=== PATIENT | female | born 1970 | race Hispanic/Latino ===

== ENCOUNTER 2018-02-08 10:38 | Outpatient (CLI) | payer BC | END 2018-02-08 10:39 | disposition home or self-care (01) | LOC: DTY/OP 10:38 | PROVIDERS: ATTEND Surgery | DX: I10 Essential (primary) hypertension (principal); G47.30 Sleep apnea, unspecified | CPT/HCPCS: 97802 ==

== ENCOUNTER 2018-03-08 15:18 | Outpatient (CLI) | payer BC | END 2018-03-08 15:19 | disposition home or self-care (01) | LOC: DTY/OP 15:18 | PROVIDERS: ATTEND Surgery | DX: Z48.812 Encounter for surgical aftercare following surgery on the circulatory system (principal); G47.30 Sleep apnea, unspecified; I10 Essential (primary) hypertension; Z98.84 Bariatric surgery status | CPT/HCPCS: 97802 ==

== ENCOUNTER 2018-04-09 14:34 | Outpatient (CLI) | payer BC | END 2018-04-09 14:35 | disposition home or self-care (01) | LOC: DTY/OP 14:34 | PROVIDERS: ATTEND Surgery | DX: G47.30 Sleep apnea, unspecified (principal); I10 Essential (primary) hypertension | CPT/HCPCS: 97802 ==

== ENCOUNTER 2018-08-07 09:48 | Outpatient (CLI) | payer BC ==
--- NOTE | 2018-08-07 12:06 | CT ---
CT CERVICAL SPINE WITHOUT CONTRAST: INDICATIONS: Radicular pain. Neck pain radiating into the left upper extremity. TECHNIQUE: Multiple axial tomograms obtained through the cervical spine with multiplanar reconstruction. FINDINGS: The cervical vertebrae maintain normal height and alignment. There are mild degenerative disk and sp ondylitic changes seen at C5-C6, C6-C7, and C7-T1. Mild loss of disk space at these levels. At C3-C4, minimal disk bulge mildly effaces the anterior subarachnoid space. The foramina are patent . At C4-C5, evidence of mild disk bulge. No central canal or foraminal stenosis. At C5-C6, there is mild disk bulge and spondylosis abutting the anterior cord. Mild left foraminal n arrowing from uncinate hypertrophy. At C6-C7, disk bulge and spondylosis abut the anterior cord. Mild left foraminal narrowing through t his facet and uncinate hypertrophy. IMPRESSION: Degenerative disk and spondylitic change at C5-C6 and C6-C7, as described above. POS: [facility]
--- NOTE | 2018-08-07 13:06 | CT ---
CT OF THE LUMBAR SPINE WITHOUT CONTRAST: INDICATION: History of back pain since 2013 after trauma to the back. The patient has a dorsal column stimulator in place. The patient is having bilateral leg pain with tingling and numbing sensation. COMPARISON: Prior CT lumbar myelogram dated 10/24/[address] of the lumbar spine without contrast dated 05/18. FINDINGS: There is mild degenerative osteoarthrosis involving the SI joints bilaterally. At L5-S1, there is a mild broad-based disk-osteophyte complex with facet hypertrophy and loss of disk space height inducing moderate bilateral osseous neural foraminal narrowing which appears stable to the comparison exams. At L4-5, there is a broad-based disk-osteophyte complex and facet hypertrophy inducing mild central c anal narrowing and moderate bilateral neural foraminal narrowing which is stable. At L3-4, there is vacuum disk phenomenon within the L3-4 level. There is a right paracentral protrus ion containing gas that is stable to the prior CT examination dated 05/18/2016. There is some mild arnoldo rowing of the right lateral recess that appears stable due to the procedure. Facet hypertrophy and d isk-osteophyte complex induces mild bilateral neural foraminal narrowing which is stable. At L2-3, there is a mild broad-based bulge without appreciable osseous, central canal, or neural fora joslyn narrowing. At L1-L2, there is no appreciable osseous central canal or neural foraminal narrowing. At T12-L1, the posterior dorsal column stimulator leads enter into the epidural space within the inte rlaminar space at T11-12 and extend beyond the field of view. No appreciable central canal or neural foraminal narrowing is seen. IMPRESSION: 1. Stable multilevel spondylosis of the lumbar spine. 2. No acute fracture or subluxation is demonstrated. POS: [facility]
== END 2018-08-07 09:49 | disposition home or self-care (01) ==
LOC: BICCT 09:48
PROVIDERS: ATTEND Specialist
DX: M48.062 Spinal stenosis, lumbar region with neurogenic claudication (principal); M47.896 Other spondylosis, lumbar region; M50.122 Cervical disc disorder at C5-C6 level with radiculopathy; M46.92 Unspecified inflammatory spondylopathy, cervical region
CPT/HCPCS: 72125; 72131

== ENCOUNTER 2018-08-21 09:00 | Inpatient (IN) | payer BC ==
[2018-08-26] MEDS ORDERED: Famotidine/PF 20 mg/2ml Vial ONE (11:14)
[2018-08-26] MEDS ORDERED: Ondansetron PF 4 MG/2 ML Vial ONE ×2 (11:15→15:11)
[2018-08-26] MEDS ORDERED: Bupivacaine/Epinephrine 0.25% 30 ML VIAL ONE (11:18)
[2018-08-26] MEDS ORDERED: Midazolam HCl 2 mg/2 ml Vial ONE (11:27)
[2018-08-26] MEDS ORDERED: Ketamine 50 MG/ML (10ML VIAL) ONE (11:27)
[2018-08-26] MEDS ORDERED: Fentanyl 100 MCG/2 ML VIAL ONE ×2 (11:28→14:18)
[2018-08-26] MEDS ORDERED: Heparin 5,000 UNITS/ML VIAL ONE (11:28)
[2018-08-26] MEDS ORDERED: Albuterol Sulfate 1.25 MG/3 ML NEB ONE (13:41)
[2018-08-26] MEDS ORDERED: Promethazine HCl 25 MG/ML VIAL IM PRN (14:02)
[2018-08-26] MEDS ORDERED: diphenhydrAMINE 50 MG/ML VIAL IM PRN (14:02)
[2018-08-26] MEDS ORDERED: HYDROmorphone 10 mg/100 ml CADD IVPB PRN (14:02)
[2018-08-26] MEDS ORDERED: Zolpidem Tartrate 5 MG TAB PO PRN (14:02)
[2018-08-26] MEDS ORDERED: diphenhydrAMINE 25 MG CAP PO PRN (14:02)
[2018-08-26] MEDS ORDERED: Naloxone HCl 0.4 mg/ml Vial IV PRN (14:02)
[2018-08-26] MEDS ORDERED: Ondansetron PF 4 MG/2 ML Vial IVP PRN (14:02)
[2018-08-26] MEDS ORDERED: diphenhydrAMINE 50 MG/ML VIAL IVP PRN ×2 (14:02→15:09)
[2018-08-26] MEDS ORDERED: D5 1/2 NS w/20 mEq KCL 1,000 ML ONE (14:06)
[2018-08-26] MEDS ORDERED: Communication Order-Pharmacy FS SCH (14:15)
[2018-08-26] MEDS ORDERED: Hydrocodone-Acetamin 15 ML UDCUP PO PRN (15:09)
[2018-08-26] MEDS ORDERED: hydrALAZINE 20 MG/ML VIAL SLOW IVP PRN (15:09)
[2018-08-26] MEDS ORDERED: Dextrose 50% Abboject 50 ML SYRINGE SLOW IVP PRN (15:09)
[2018-08-26] MEDS ORDERED: Dextrose 5% in Water 1,000 ML IV PRN (15:09)
[2018-08-26] MEDS ORDERED: Labetalol HCl 100 MG/20 ML VIAL ONE (15:11)
[2018-08-26] MEDS ORDERED: Lidocaine 1% PF 5 ML VIAL ONE (15:11)
[2018-08-26] MEDS ORDERED: PROVENTIL INHALER 6.7 G (200 INHALATIONS) ONE (15:11)
[2018-08-26] MEDS ORDERED: Esmolol 100 MG/10 ML VIAL ONE (15:11)
[2018-08-26] MEDS ORDERED: PROPOFOL 200 MG/20 ML VIAL ONE (15:11)
[2018-08-26] MEDS ORDERED: Glycopyrrolate 0.2 MG/ML 5 ML SYRINGE ONE (15:11)
[2018-08-26] MEDS ORDERED: Dexamethasone 20 MG/5 ML VIAL ONE (15:11)
[2018-08-26] MEDS ORDERED: Succinylcholine Chloride 20 MG/ML 10 ml SYRINGE FS ONE (15:11)
[2018-08-26] MEDS: D5 1/2 NS w/20 mEq KCL 1,000 ML IV SCH ×2 (15:39→23:15)
[2018-08-26] MEDS: Ondansetron PF 4 MG/2 ML Vial IVP PRN (17:45)
--- NOTE | 2018-08-26 19:22 | OP ---
DATE OF PROCEDURE: 08/26/2018 PREOPERATIVE DIAGNOSES: 1. Morbid obesity with a body mass index of 40. 2. Obstructive sleep apnea. 3. History of erosive esophagitis. POSTOPERATIVE DIAGNOSES: 1. Morbid obesity with a body mass index of 40. 2. Obstructive sleep apnea. 3. History of erosive esophagitis. PROCEDURES: 1. Laparoscopic Navin-en-Y gastric bypass, 100 cm bypass length. 2. EGD. SURGEON: Alejandro Boyer MD ANESTHESIA: General. ESTIMATED BLOOD LOSS: 50 mL. COMPLICATIONS: None. SPECIMEN: None. FINDINGS: Normal postoperative EGD. PROCEDURE IN DETAIL: The patient was taken to the operating room and placed supine on the table. Af ter general anesthetic was obtained, the arms and legs were double strapped to bariatric table. OG t ube was used to decompress the stomach. The abdomen was prepped and draped in a sterile fashion. Le ft subcostal 5-mm Optiview trocar was placed in the usual fashion and high-flow pneumoperitoneum was obtained. Left and right lower abdominal 12-mm ports and right subcostal 12-mm port were placed unde r direct visualization. The 5-mm subcostal port switched out to a 12-mm port. The greater omentum h ad split right at the mid transverse colon. The transverse colon was lifted up for the ligament of T eugenia. A distance of 30 cm was marched distally and a laparoscopic stapler was fired transversely ac ross the intestine. The mesentery defect is opened slightly more and a Navin limb was formed by meghannin g the laparoscopic LigaSure up against the mesenteric surface of the distal small bowel staple line f or 10 cm. A distance of 100 cm is then marched distally. At this location, an enterotomy was made o n the antimesenteric surface of the small bowel. An enterotomy was made on the above-mentioned proxi mal staple line as well. A [id number] staple lines formed using a reload of the 60 stapler. The c ommon enterotomy was closed transversely using two loads of the 60 stapler. Care was taken to avoid stenosis of the jejunojejunostomy, did not appear to be stenosed. The mesenteric defect was closed u sing 2 Vicryl sutures. The Navin limb was able to be brought up on top of the stomach under no tensio n. Care was taken to make sure this mesentery was not twisted. Along the lesser curve of the stomac h, approximately 3 cm down, a small tunnel path is performed behind the GE junction. A laparoscopic stapler was fired transversely across the stomach at this location to start the upper pouch. A dista l gastrotomy was made. The anvil for the 25 EEA was brought into the gastrotomy and the band passer used to pass it out above the above-mentioned staple line. This would be the location for the gastro jejunostomy. The gastrotomy was closed using 2 fires of the stapler. Multiple loads of the stapler were then used to form the stomach pouch and the stomach was completely at the angle of His . The sharp pin was brought out on the anvil from above. The base for the EEA was brought into the left subcostal incision, placed through the end of the Navin limb and out its sharp pin brought out on the antimesenteric surface of the small intestine proximally. This was connected to the anvil from above. The stapler was fired down and fired. There were 2 good rings of tissue obtained and the sta pler was removed. Two Vicryl sutures were used to oversew the staple line. The distal blue limb was stapled off at the location of the gastrojejunostomy and removed from the left subcostal incision. EGD scope was passed via the esophagus into the stomach pouch and into the Navin limb without difficul ty. There was no stenosis. There was no air leakage along the staple line. There was no internal b leeding or evidence of defects or stenosis. EGD scope was used to decompress the stomach. It was pu lled and removed. All 12-mm port sites were closed using GraNee needle 0 Vicryl ties. Nathansen ret ractor was removed under direct visualization without bleeding. Pneumoperitoneum was let down. All incisions were irrigated. Local anesthetic was applied. All wounds were closed using 4-0 Monocryl a nd Dermabond. The patient was en route to recovery in stable condition. All instrument counts, need le counts, lap counts are correct.
[2018-08-26] MEDS: Enoxaparin Sodium 40 MG/0.4 ML SYRINGE SC SCH (21:38)
[2018-08-26] MEDS: Promethazine HCl 25 MG/ML VIAL IM PRN (21:41)
[2018-08-27] MEDS: Ondansetron PF 4 MG/2 ML Vial IVP PRN ×2 (02:01→08:26)
[2018-08-27 05:21] LABS: #Lymphocytes 1.4 thou/uL (1.20-3.40); #Monocytes 1.4 thou/uL (0.11-0.59); #Neutrophils 14.7 thou/uL (1.40-6.50); %Basophils 0.2 % (0.0-1.0); %Eosinophils 0.1 % (0.0-10.0); %Lymphocytes 7.8 % (21.0-51.0); %Monocytes 8.2 % (0.0-10.0); %Neutrophils 83.7 % (42.0-75.0); Hemoglobin 14.9 g/dL (12.0-16.0); Mean Corpuscular HGB CONC 32.5 g/dL (32.0-36.0); Mean Corpuscular Hemoglobin 29.5 pg (27.0-31.0); Mean Corpuscular Volume 90.8 fL (78.0-98.0); Platelet Count 358 thou/uL (130-400); RBC Distribution Width 11.9 % (11.5-14.5); Red Blood Cell (RBC) Count 5.05 mill/uL (4.20-5.40); White Blood Cell (WBC) Count 17.5 thou/uL (4.8-10.8)
[2018-08-27] MEDS: D5 1/2 NS w/20 mEq KCL 1,000 ML IV SCH (05:22)
[2018-08-27] MEDS: Promethazine HCl 25 MG/ML VIAL IM PRN ×6 (05:25→22:25)
[2018-08-27 05:34] LABS: Anion Gap 11 mmol/L (10-20); BUN (Urea Nitrogen) 5 mg/dL (7.0-18.7); Calc. Creatinine Clearance 219 mL/min (70-130); Carbon Dioxide 20 mmol/L (22-29); Chloride 103 mmol/L (98-107); Estimated GFR-MDRD Greater than 90; Glucose 152 mg/dL (70-105); Potassium 3.8 mmol/L (3.5-5.1); Sodium 130 mmol/L (136-145)
[2018-08-27] MEDS: Sodium Chloride 0.9% 1,000 ML IV SCH ×3 (08:25→21:40)
[2018-08-27] MEDS: Pantoprazole 40 MG VIAL IVP SCH (08:26)
--- NOTE | 2018-08-27 08:50 | EKG ---
Test Reason : PREOP Blood Pressure : / mmHG Vent. Rate : 072 BPM Atrial Rate : 072 BPM P-R Int : 148 ms QRS Dur : 094 ms QT Int : 386 ms P-R-T Axes : 037 -09 032 degrees QTc Int : 422 ms Normal sinus rhythm Normal ECG Confirmed by DR. Flor ABBASI ([id number]) on 08/27/2018 8:49:42 AM Referred By: CARLITA Confirmed By:DR. Flor ABBASI
[2018-08-27] MEDS: Acetaminophen 1,000 MG in Premix Bag 1 BAG IVPB PRN ×2 (13:33→21:39)
[2018-08-27] MEDS: fentaNYL Citrate/PF 2,000 MCG in Sodium Chloride 0.9% 60 ML IV PRN (14:01)
[2018-08-27] MEDS ORDERED: METOCLOPRAMIDE HCL IVP SCH (14:45)
[2018-08-27] MEDS ORDERED: ONDANSETRON IVP SCH (14:45)
[2018-08-27] MEDS ORDERED: SODIUM CHLORIDE 0.9% IVP SCH ×2 (14:45)
[2018-08-27] MEDS: Enoxaparin Sodium 40 MG/0.4 ML SYRINGE SC SCH (20:19)
--- NOTE | 2018-08-27 20:42 | PDOC.EVN ---
Event Note - Event Note Event Note: Patient has had multiple episodes of vomitting today. Severe nausea. Added reglan, changed cork slabs sawyer to fentanyl. Vital signs stable. Patient seen at bedside and reassured. Likely swelling at anastamosis. EGD immediately post op showed no obstruction. Plan swallow study tomorrow. Supportive care.
[2018-08-27] MEDS ORDERED: Sodium Chloride 0.9% 1,000 ML IV SCH (23:15)
[2018-08-27 23:27] LABS: Hemoglobin 13.8 g/dL (12.0-16.0)
[2018-08-28] MEDS ORDERED: Ondansetron HCl/PF 8 MG in Sodium Chloride 0.9% 50 ML IVPB SCH (00:30)
[2018-08-28 04:24] LABS: #Eosinphils 0.1 thou/uL (0.0-0.7); #Lymphocytes 1.3 thou/uL (1.20-3.40); #Monocytes 0.9 thou/uL (0.11-0.59); #Neutrophils 17.2 thou/uL (1.40-6.50); %Basophils 0.1 % (0.0-1.0); %Eosinophils 0.3 % (0.0-10.0); %Lymphocytes 6.5 % (21.0-51.0); %Monocytes 4.8 % (0.0-10.0); %Neutrophils 88.2 % (42.0-75.0); Hemoglobin 12.6 g/dL (12.0-16.0); Mean Corpuscular Hemoglobin 30.3 pg (27.0-31.0); Mean Corpuscular Volume 91.9 fL (78.0-98.0); Mean Platelet Volume 7.2 fL (7.4-10.4); Platelet Count 375 thou/uL (130-400); RBC Distribution Width 11.9 % (11.5-14.5); Red Blood Cell (RBC) Count 4.15 mill/uL (4.20-5.40); White Blood Cell (WBC) Count 19.5 thou/uL (4.8-10.8)
[2018-08-28 05:21] LABS: Anion Gap 12 mmol/L (10-20); BUN (Urea Nitrogen) 18 mg/dL (7.0-18.7); Calc. Creatinine Clearance 198 mL/min (70-130); Calcium 8.4 mg/dL (7.8-10.44); Carbon Dioxide 15 mmol/L (22-29); Chloride 110 mmol/L (98-107); Estimated GFR-MDRD Greater than 90; Glucose 196 mg/dL (70-105); Potassium 3.9 mmol/L (3.5-5.1); Sodium 133 mmol/L (136-145)
[2018-08-28] MEDS: Ondansetron PF 4 MG/2 ML Vial IVP PRN (05:36)
--- NOTE | 2018-08-28 07:14 | PRG ---
DATE OF SERVICE: 08/28/2018 SUBJECTIVE: Ms. Kaplan is still very uncomfortable, burning in her low chest from vomiting. She had dry heaving and vomiting of small amounts of bloody material all night long. Her pulse has gradu ally become faster through the night. Her blood pressures have remained stable. She has been awake and alert. Her O2 sats have been fine. She is complaining of occasional cramping pain in the upper abdomen that is not described as severe. PHYSICAL EXAMINATION: VITAL SIGNS: Pulse 134, blood pressure is 144/97, respirations 17, temperature 98.7. She has voided a few times overnight. ABDOMEN: Soft. Incisions are healing well. She is minimally distended. LABORATORY DATA: White cell count is 19, hemoglobin 12, platelet count is 375. Sodium 133, potassiu m 3.9, creatinine 0.62, CO2 of 15. ASSESSMENT: Postoperative day #2, laparoscopic gastric bypass with persistent nausea postoperative t hat has now turned into vomiting, some bloody with persistent tachycardia. PLAN: I will take her back to the operating room this morning, diagnostic laparoscopy plus EGD. Ris ks, benefits, alternatives discussed. She gives consent. We will do this this morning.
[2018-08-28] MEDS ORDERED: Bupivacaine/Epinephrine 0.25% 30 ML VIAL ONE (07:54)
[2018-08-28] MEDS ORDERED: Fentanyl 100 MCG/2 ML VIAL ONE (07:56)
[2018-08-28] MEDS ORDERED: Fentanyl 250 MCG/5 ML VIAL ONE (08:37)
[2018-08-28] MEDS ORDERED: CEFAZOLIN 2 GM/50 ML BAG ONE (08:42)
[2018-08-28] MEDS ORDERED: HYDROmorphone 2 MG/ML VIAL ONE (10:40)
[2018-08-28] MEDS ORDERED: PHENYLEPHRINE-NS 100 MCG/ML 10 ML SYRINGE ONE ×2 (10:43→17:19)
[2018-08-28] MEDS ORDERED: Sodium Chloride 0.9% 20 ML ONE (10:50)
[2018-08-28] MEDS ORDERED: Esmolol 100 MG/10 ML VIAL ONE ×2 (12:04→17:19)
[2018-08-28] MEDS ORDERED: Metoprolol Tartrate 5 MG/5 ML VIAL ONE (12:42)
[2018-08-28] MEDS ORDERED: Metoclopramide HCl 10 MG/2 ML VIAL ONE (12:42)
[2018-08-28] MEDS ORDERED: Promethazine HCl 25 MG/ML VIAL IM PRN (13:19)
[2018-08-28] MEDS ORDERED: Promethazine HCl 25 MG/ML VIAL SLOW IVP PRN (13:19)
[2018-08-28] MEDS ORDERED: Ondansetron HCl/PF 4 MG/2 ML Vial IVP PRN (13:19)
--- NOTE | 2018-08-28 15:18 | RAD ---
PORTABLE CHEST: Indications: Assess line placement. Comparison: 08-21-18 FINDINGS: Central line via the right jugular appears adequate position with the tip overlying the SVC. There is new patchy atelectasis and/or infiltrate in the left lung base when compared to prior study. There i s also linear density in the right base, probably atelectasis. IMPRESSION: New bibasilar opacities. Follow up recommended. POS: [facility]
[2018-08-28] MEDS ORDERED: Fluconazole In NaCl,Iso-Osm 200 MG in Premix Bag 1 BAG IVPB SCH (15:39)
[2018-08-28] MEDS ORDERED: Dextrose 50% Abboject 50 ML SYRINGE SLOW IVP PRN (15:39)
[2018-08-28] MEDS ORDERED: Dextrose 5% in Water 1,000 ML IV PRN (15:39)
[2018-08-28] MEDS ORDERED: Insulin Regular 300 UNITS/3 ML VIAL SC PRN (15:39)
[2018-08-28] MEDS ORDERED: Fluconazole In NaCl,Iso-Osm 200 MG in Admixture Fee 1 EACH IVPB SCH (16:00)
[2018-08-28 16:51] LABS: Hemoglobin 13.1 g/dL (12.0-16.0)
[2018-08-28] MEDS: Piperacillin/Tazobactam 3.375 GM in Sodium Chloride 0.9% 100 ML IVPB SCH ×2 (17:11→22:49)
[2018-08-28] MEDS: Pantoprazole 40 MG VIAL IVP SCH (17:11)
[2018-08-28] MEDS: Sodium Chloride 0.9% 1,000 ML IV SCH ×2 (17:11→20:19)
[2018-08-28] MEDS: D5 1/2 NS w/20 mEq KCL 1,000 ML IV SCH (17:14)
[2018-08-28] MEDS ORDERED: Sodium Chloride 0.9% 1,000 ML IV SCH ×2 (17:15→19:30)
[2018-08-28] MEDS ORDERED: PROPOFOL 200 MG/20 ML VIAL ONE (17:19)
[2018-08-28] MEDS ORDERED: Ondansetron PF 4 MG/2 ML Vial ONE ×2 (17:19)
[2018-08-28] MEDS ORDERED: Succinylcholine Chloride 20 MG/ML 10 ml SYRINGE FS ONE (17:19)
[2018-08-28] MEDS ORDERED: Dexamethasone 20 MG/5 ML VIAL ONE (17:19)
[2018-08-28] MEDS ORDERED: Lidocaine 1% PF 5 ML VIAL ONE (17:19)
[2018-08-28] MEDS ORDERED: Glycopyrrolate 0.2 MG/ML 5 ML SYRINGE ONE (17:19)
--- NOTE | 2018-08-28 19:13 | CON ---
DATE OF CONSULTATION: 08/28/2018 REASON FOR CONSULTATION: IMCU placement. HISTORY OF PRESENT ILLNESS: Binta Kaplan is a 47-year-old female who underwent a Navin-en-Y gastri c bypass surgery on 08/26/2018. The patient was transferred to the IMCU last night. According to e event note, she has been having multiple episodes of vomiting throughout the day. She had become t achycardic. She was taken down for an exploratory lap today, she was found to have peritonitis. She had a G-tube placed. I saw her in the recovery room after surgery. She was awake and seems to be d oing reasonably well except for tachycardia, heart rate of about 150. PAST MEDICAL HISTORY: 1. Hypertension. 2. Migraine headaches. 3. Carpal tunnel syndrome. 4. Chronic back pain. 5. Morbid obesity. PAST SURGICAL HISTORY: 1. Hysterectomy. 2. Cholecystectomy. 3. Knee arthroscopy. 4. Foot surgery. 5. Dorsal cord stimulator. 6. Septoplasty. FAMILY MEDICAL HISTORY: Remarkable for diabetes, hypertension, and stroke and throat cancer. MEDICATIONS: Prior to admission, ProAir, Symbicort. SOCIAL HISTORY: Nonsmoker. Very occasionally consumes alcohol. ALLERGIES: None. REVIEW OF SYSTEMS: Twelve-point review of systems is otherwise negative. PHYSICAL EXAMINATION: VITAL SIGNS: Heart rate 150, blood pressure 123/82, O2 sat 96% on 2 liters, respiratory rate 15. GENERAL: She is awake. She is in no distress. HEENT: Pupils react. Sclerae icteric. Oropharynx clear. NECK: She has a right IJ central line in place. LUNGS: Clear anteriorly without wheezing or rhonchi. CARDIOVASCULAR: S1, S2, tachycardic without audible murmur. ABDOMEN: Slightly distended, tenderness around the incisional site. G-tube noted. EXTREMITIES: No clubbing, cyanosis, or edema. LABORATORY DATA: White blood cell count 19.5, hematocrit 38.1, platelet count 375. Sodium 133, pota ssium 3.9, chloride 110, CO2 is 15, BUN 18, creatinine 0.6, glucose 196. IMAGING: Chest x-ray demonstrates some atelectatic changes in the left upper lobe and right middle l obe area. Otherwise, looks okay. ASSESSMENT: 1. Peritonitis. 2. Tachycardia, which is probably secondary to peritonitis. PLAN: The patient is receiving IV fluids. I will check an EKG to make sure she is not in atrial flu tter. Might possibly need antibiotics. I will discuss with Dr. Boyer.
[2018-08-28] MEDS: Enoxaparin Sodium 40 MG/0.4 ML SYRINGE SC SCH (20:18)
[2018-08-28] MEDS: PROVENTIL INHALER 6.7 G (200 INHALATIONS) INH PRN (22:53)
[2018-08-28 23:02] LABS: Hemoglobin 11.7 g/dL (12.0-16.0); Mean Corpuscular HGB CONC 32.8 g/dL (32.0-36.0); Mean Corpuscular Hemoglobin 30.6 pg (27.0-31.0); Mean Corpuscular Volume 93.3 fL (78.0-98.0); Mean Platelet Volume 7.4 fL (7.4-10.4); Platelet Count 315 thou/uL (130-400); RBC Distribution Width 12.2 % (11.5-14.5); Red Blood Cell (RBC) Count 3.82 mill/uL (4.20-5.40); White Blood Cell (WBC) Count 32.1 thou/uL (4.8-10.8)
[2018-08-28 23:18] LABS: Band 5 % (5-11); Hypochromia SLIGHT = 6-15 cells (100X) (0-5/hpf); Lymphocytes 2 % (21-51); MDiff Complete? YES; Monocytes 5 % (0-10); Neutrophil 88 % (42-75); PLT Morphology Comment Appears Adequate
--- NOTE | 2018-08-28 23:24 | OP ---
DATE OF SERVICE: 08/28/2018. PREOPERATIVE DIAGNOSES: Tachycardia, intractable nausea, vomiting, status post gastric bypass. POSTOPERATIVE DIAGNOSIS: 1. Dilated partially obstructed remnant stomach that is blood filled. 2. Iatrogenic injury to small bowel x3. 3. Ileus. PROCEDURE: Exploratory laparotomy, repair of small bowel injury x3, placement of G-tube in remnant s tomach for decompression. SURGEON: Alejandro Boyer M.D. ANESTHESIA: General. ESTIMATED BLOOD LOSS: 150 mL COMPLICATIONS: None. FINDINGS: There is diffuse dilation of the intestine and colon consistent with ileus. The remnant s tomach is significantly dilated to the point of almost perforation of its staple line. A G-tube is p laced with bloody bilious material in the remnant stomach. TECHNIQUE: The patient was taken to the operating room same table. After general anesthetic was obt ained, a Contreras was placed. The abdomen is prepped and draped in a sterile fashion. Laparoscopy is a ttempted; however, the small intestine is just too dilated to see. A midline incision was made. A B ookwalter retractor was placed. The small bowel was traced from the gastrojejunostomy distally to th e jejunojejunostomy. There were some acute adhesions in the area and in doing so where one of the ga strojejunostomy oversew suture as well as little hole on the small intestine just distal to the anastomosis. This was closed using interrupted Vicryl suture followed by 3-0 silk serosal sutures. It was tested and found to be without leak after that. The small bowel was run to the jejunojejunos kriss. There is no evidence of stenosis at the gastrojejunostomy anastomosis. There is no evidence o f stenosis at the jejunojejunostomy. There is no evidence of stenosis and the lumens are wide open f or the afferent limb going up to the stomach. Small bowel was then run distally and a few small ente rotomies were found from using the laparoscopic grasping device. These are closed using interrupted Vicryl suture and silk oversew sutures. Small bowel was then run all the way to the colon without fu rther evidence of injury. The abdomen is irrigated copiously using sterile solution. There was spil sergio of some small bowel contents with repair of these enterotomies. Along the greater curve, a loca tion for a G-tube was found and a pursestring of silk was placed. A gastrotomy was made and the Male cot catheter placed into the stomach. Pursestring was tied down. The stomach was pulled up to the p osterior abdominal wall and affixed to the posterior abdominal wall using silk sutures. Again, there was no evidence of leakage at the previous gastrojejunostomy anastomosis. [address] d in the left subdiaphragmatic area and along the remnant stomach staple line. These were sewn to th e skin using silk. All instrument counts, needle counts, lap counts were correct. There is no ongoi ng bleeding. Midline fascia closed with #1 PDS from the top and the bottom and tied in the middle. Subcutaneous tissues are irrigated copiously using sterile solution and the subcutaneous tissues were closed using 3-0 Vicryl. The skin was closed loosely using skin clips. Telfa rohit were placed. S terile dressings are placed. Dressings are placed around drain site and G-tube site. FINDINGS: The right neck is prepped and draped in a sterile fashion. The 22-gauge finder needle was used to cannulate the right internal jugular vein followed by a Seldinger needle. Wire was passed a nd under no tension, small iván was made to entrance site. The wire was used as a guide to dilate th e internal jugular vein. Triple lumen catheter was threaded to 16 cm, sewn to the neck using closed silk and connector. All ports flushed and draw blood without difficulty. Each is flushed with a woodrow ine solution. Sterile dressings are placed as well as the antimicrobial disk. The patient was en ro swetha to the IMCU in stable condition, extubated. All instrument counts, needle counts, lap counts wer e correct.
[2018-08-28 23:46] LABS: ALT (SGPT) 69 U/L (8-55); AST (SGOT) 62 U/L (5-34); Albumin 2.4 g/dL (3.5-5.0); Alkaline Phosphatase 56 U/L (40-150); Anion Gap 10 mmol/L (10-20); BUN (Urea Nitrogen) 29 mg/dL (7.0-18.7); Bilirubin, Total 0.5 mg/dL (0.2-1.2); Calc. Creatinine Clearance 87 mL/min (70-130); Calcium 7.2 mg/dL (7.8-10.44); Carbon Dioxide 17 mmol/L (22-29); Chloride 115 mmol/L (98-107); Estimated GFR-MDRD 40; Globulin 2.4 g/dL (2.4-3.5); Glucose 187 mg/dL (70-105); Magnesium 1.2 mg/dL (1.6-2.6); Phosphorus 1.6 mg/dL (2.3-4.7); Potassium 4.5 mmol/L (3.5-5.1); Protein, Total 4.8 g/dL (6.0-8.3); Sodium 137 mmol/L (136-145)
[2018-08-29] MEDS ORDERED: Albumin 25% 25 GM/100 ML BOT IVPB SCH (00:15)
[2018-08-29] MEDS: D5 1/2 NS w/20 mEq KCL 1,000 ML IV SCH ×3 (00:35→20:59)
[2018-08-29] MEDS ORDERED: Magnesium Sulfate 4 GM in Sodium Chloride 0.9% 250 ML 250 ML IVPB SCH (01:00)
[2018-08-29] MEDS: Piperacillin/Tazobactam 3.375 GM in Sodium Chloride 0.9% 100 ML IVPB SCH ×4 (05:58→21:00)
[2018-08-29 06:18] LABS: Anion Gap 11 mmol/L (10-20); BUN (Urea Nitrogen) 35 mg/dL (7.0-18.7); Calc. Creatinine Clearance 96 mL/min (70-130); Calcium 7.2 mg/dL (7.8-10.44); Carbon Dioxide 17 mmol/L (22-29); Chloride 116 mmol/L (98-107); Estimated GFR-MDRD 45; Glucose 182 mg/dL (70-105); Sodium 140 mmol/L (136-145)
[2018-08-29 06:29] LABS: Band 2 % (5-11); Hemoglobin 9.8 g/dL (12.0-16.0); Hypochromia SLIGHT = 6-15 cells (100X) (0-5/hpf); Lymphocytes 5 % (21-51); MDiff Complete? YES; Mean Corpuscular HGB CONC 31.7 g/dL (32.0-36.0); Mean Corpuscular Hemoglobin 29.7 pg (27.0-31.0); Mean Corpuscular Volume 93.7 fL (78.0-98.0); Mean Platelet Volume 7.5 fL (7.4-10.4); Monocytes 5 % (0-10); Neutrophil 88 % (42-75); PLT Morphology Comment Appears Adequate; Platelet Count 280 thou/uL (130-400); RBC Distribution Width 12.2 % (11.5-14.5); Red Blood Cell (RBC) Count 3.31 mill/uL (4.20-5.40); White Blood Cell (WBC) Count 23.5 thou/uL (4.8-10.8)
[2018-08-29] MEDS: Pantoprazole 40 MG VIAL IVP SCH (08:05)
[2018-08-29] MEDS ORDERED: Sodium Phosphate 60 MEQ/15 ML VIAL IVPB SCH (08:15)
--- NOTE | 2018-08-29 08:21 | PRG ---
DATE OF SERVICE: 08/29/2018 The patient feels a little better this morning. Hospital course last night was complicated by persis tent tachycardia which is now improved this morning. PHYSICAL EXAMINATION: VITAL SIGNS: Pulse is 136, temperature 99.3, respiratory 18, O2 sat 97% on 2 liters, blood pressure 130/84. HEENT: Unremarkable. NECK: No JVD. CARDIAC: S1, S2, tachycardic. LUNGS: Clear. ABDOMEN: Distended, quiet bowel sounds. She has a dark sludge material draining from her gastric re mnant. EXTREMITIES: No edema. LABORATORY DATA: Sodium 140, potassium 4, chloride 116, CO2 17, BUN 35, creatinine 1.3, glucose 182, calcium 7.2, white blood cell count 23.5, hematocrit 31, platelet count 280. ASSESSMENT: 1. Peritonitis. 2. Systemic inflammatory response syndrome. 3. Renal insufficiency. 4. Electrolyte depletion. PLAN: 1. Given another dose of sodium phosphate. 2. Continue IV antibiotics and IV fluids. 3. Recheck labs tomorrow morning. 4. Continue to monitor urine output.
[2018-08-29] MEDS: PROVENTIL INHALER 6.7 G (200 INHALATIONS) INH PRN (08:48)
[2018-08-29] MEDS ORDERED: SODIUM PHOSPHATE IVPB SCH (09:00)
[2018-08-29] MEDS ORDERED: SODIUM CHLORIDE 0.9% IVPB SCH (09:00)
[2018-08-29] MEDS: Acetaminophen 1,000 MG in Premix Bag 1 BAG IVPB PRN ×2 (10:10→21:00)
--- NOTE | 2018-08-29 16:59 | PRG ---
DATE OF SERVICE: 08/29/2018 SUBJECTIVE: Ms. Kaplan is doing better today. She is not having any dry heaving or vomiting. He r belly distention is slightly improved. Her pulse is much better this morning. Her mouth is very d ry. OBJECTIVE: Vitals: Pulse 117, blood pressure is 120/79, respirations 18. She is on 1 liter nasal cannula with 96% sat. Her urine output is adequate at 525 for the shift. G-tube is 525 and it is bilious. The o ther drains are serosanguineous. ABDOMEN: Soft. The wounds are dressed. LABORATORY DATA: Her white count is 23, hemoglobin is 9.8, platelet count is 280 with 2 bands. Crea tinine is 1.28. ASSESSMENT: Postoperative exploratory laparotomy, open G-tube remnant stomach and washout. PLAN: I would plan on keeping her n.p.o. for now since I had to repair iatrogenic injury just past h er GJ anastomosis. Perform swallow test on Sunday prior to initiating p.o. intake. Continue FRUIT AND VEGETABLE PACKER unt il then decompression of remnant of stomach with G-tube.
[2018-08-29] MEDS: Enoxaparin Sodium 40 MG/0.4 ML SYRINGE SC SCH (21:00)
[2018-08-30] MEDS: D5 1/2 NS w/20 mEq KCL 1,000 ML IV SCH ×3 (03:24→16:16)
[2018-08-30] MEDS: Piperacillin/Tazobactam 3.375 GM in Sodium Chloride 0.9% 100 ML IVPB SCH ×3 (03:25→15:44)
[2018-08-30 05:58] LABS: ALT (SGPT) 32 U/L (8-55); AST (SGOT) 20 U/L (5-34); Albumin 2.5 g/dL (3.5-5.0); Alkaline Phosphatase 51 U/L (40-150); Anion Gap 9 mmol/L (10-20); BUN (Urea Nitrogen) 21 mg/dL (7.0-18.7); Bilirubin, Total 0.4 mg/dL (0.2-1.2); Calc. Creatinine Clearance 226 mL/min (70-130); Calcium 7.7 mg/dL (7.8-10.44); Carbon Dioxide 24 mmol/L (22-29); Chloride 117 mmol/L (98-107); Estimated GFR-MDRD Greater than 90; Globulin 2.4 g/dL (2.4-3.5); Glucose 147 mg/dL (70-105); Phosphorus 1.2 mg/dL (2.3-4.7); Potassium 3.6 mmol/L (3.5-5.1); Protein, Total 4.9 g/dL (6.0-8.3); Sodium 146 mmol/L (136-145)
[2018-08-30 06:11] LABS: #Lymphocytes 1.4 thou/uL (1.20-3.40); #Monocytes 1.2 thou/uL (0.11-0.59); #Neutrophils 16.2 thou/uL (1.40-6.50); %Basophils 0.1 % (0.0-1.0); %Eosinophils 0.2 % (0.0-10.0); %Lymphocytes 7.4 % (21.0-51.0); %Monocytes 6.1 % (0.0-10.0); %Neutrophils 86.2 % (42.0-75.0); Hemoglobin 7.4 g/dL (12.0-16.0); Mean Corpuscular HGB CONC 32.4 g/dL (32.0-36.0); Mean Corpuscular Hemoglobin 30.7 pg (27.0-31.0); Mean Corpuscular Volume 94.8 fL (78.0-98.0); Mean Platelet Volume 7.3 fL (7.4-10.4); Platelet Count 255 thou/uL (130-400); RBC Distribution Width 12.5 % (11.5-14.5); Red Blood Cell (RBC) Count 2.39 mill/uL (4.20-5.40); White Blood Cell (WBC) Count 18.8 thou/uL (4.8-10.8)
[2018-08-30] MEDS ORDERED: Sodium Phosphate 40 MMOL in Sodium Chloride 0.9% 250 ML 250 ML IVPB SCH (07:00)
--- NOTE | 2018-08-30 08:43 | PRG ---
DATE OF SERVICE: 08/30/2018 Ms. Kaplan continues to slowly improve. She is upset that she cannot take anything by mouth at th e current time. PHYSICAL EXAMINATION: VITAL SIGNS: Temperature is 98.4, pulse 110, respirations 18, O2 sat 96% on room air, blood pressure 120/70, 24-hour intake 3335 mL, output 3030 mL. HEENT: Unremarkable. NECK: No JVD. CHEST: Clear. CARDIAC: S1 and S2 regular. ABDOMEN: No tenderness around the incisional site. EXTREMITIES: No edema. LABORATORY DATA: Sodium 146, potassium 3.6, chloride 117, CO2 24, BUN 21, creatinine 0.5, glucose 14 7. Phosphate is 1.2, magnesium 2.4, albumin 2.5, white blood cell count 18.8, hematocrit 22.7, plate let count 255. ASSESSMENT: 1. Severe hypophosphatemia. 2. Systemic inflammatory response syndrome. 3. Peritonitis. 4. Status post gastric bypass surgery with bleeding into the gastric remnant. 5. Renal insufficiency, which has improved. PLAN: 1. Replace phosphate - sodium phosphate this morning and then a dose of potassium phosphate this aft ernoon. 2. Continue to monitor electrolytes closely. 3. Continue empiric antibiotics. 4. Can probably go out to the surgical floor if okay with Dr. Boyer.
[2018-08-30] MEDS: Pantoprazole 40 MG VIAL IVP SCH (09:23)
--- NOTE | 2018-08-30 13:06 | PRG ---
DATE OF SERVICE: 08/30/2018 Ms. Kaplan is doing well. She got out of bed. Her dressings have all been changed. No nausea. No dry heaving. PHYSICAL EXAMINATION: VITAL SIGNS: She is afebrile and her pulse remains in the 110s to 120s. Urine output remains good. Her G-tube output is 520, that is in her remnant stomach. ABDOMEN: Soft, appropriately tender, mildly distended. Dressings are clear. JPs are serosanguineou s. LABORATORY DATA: White cell count is 18, hemoglobin is 7.4, creatinine 0.57. Sodium 146. Phosphoru s was low at 1.2. ASSESSMENT: Postop exploratory laparotomy after gastric bypass with acute dilation of remnant stomac h treated with G-tube drainage, iatrogenic injury repaired to small bowel Navin limb. Taking it slow on diet for that reason. Plan swallow study on Sunday. Until then, we will start TPN. We will let her do some ice chips and she is doing better clinically. I appreciate Dr. Ahmadi's assistance in h er care.
[2018-08-30] MEDS: Potassium Phosphate 40 MMOL in Sodium Chloride 0.9% 500 ML IVPB SCH (14:07)
[2018-08-30] MEDS ORDERED: Acetaminophen 1,000 MG in Premix Bag 1 BAG IVPB PRN (16:27)
[2018-08-30] MEDS: fentaNYL Citrate/PF 2,000 MCG in Sodium Chloride 0.9% 60 ML IV PRN (16:32)
[2018-08-30] MEDS: Enoxaparin Sodium 40 MG/0.4 ML SYRINGE SC SCH (20:36)
[2018-08-30] MEDS: [UNRECOGNIZED DRUG - OTHER] IV SCH (22:36)
[2018-08-30] MEDS: MAGNESIUM SULFATE IV SCH (22:36)
[2018-08-30] MEDS: MULTIVITAMINS IV SCH (22:36)
[2018-08-30] MEDS: POTASSIUM PHOSPHATE IV SCH (22:36)
[2018-08-31] MEDS: Piperacillin/Tazobactam 3.375 GM in Sodium Chloride 0.9% 100 ML IVPB SCH ×5 (00:15→21:57)
[2018-08-31 02:49] LABS: #Eosinphils 0.1 thou/uL (0.0-0.7); #Lymphocytes 1.6 thou/uL (1.20-3.40); #Monocytes 0.9 thou/uL (0.11-0.59); #Neutrophils 12.6 thou/uL (1.40-6.50); %Basophils 0.1 % (0.0-1.0); %Eosinophils 0.7 % (0.0-10.0); %Lymphocytes 10.7 % (21.0-51.0); %Monocytes 5.8 % (0.0-10.0); %Neutrophils 82.7 % (42.0-75.0); Hemoglobin 7.3 g/dL (12.0-16.0); Mean Corpuscular HGB CONC 33.1 g/dL (32.0-36.0); Mean Corpuscular Volume 93.7 fL (78.0-98.0); Mean Platelet Volume 7.3 fL (7.4-10.4); Platelet Count 233 thou/uL (130-400); RBC Distribution Width 12.6 % (11.5-14.5); Red Blood Cell (RBC) Count 2.37 mill/uL (4.20-5.40); White Blood Cell (WBC) Count 15.3 thou/uL (4.8-10.8)
[2018-08-31 03:32] LABS: Phosphorus 2.1 mg/dL (2.3-4.7)
[2018-08-31] MEDS: Pantoprazole 40 MG VIAL IVP SCH (08:43)
[2018-08-31] MEDS: D5 1/2 NS w/20 mEq KCL 1,000 ML IV SCH ×3 (08:43→17:38)
--- NOTE | 2018-08-31 10:30 | EKG ---
Test Reason : SINUS TACHYCARDIA Blood Pressure : / mmHG Vent. Rate : 154 BPM Atrial Rate : 154 BPM P-R Int : 128 ms QRS Dur : 082 ms QT Int : 238 ms P-R-T Axes : 039 005 059 degrees QTc Int : 381 ms Sinus tachycardia Possible Inferior infarct , age undetermined Cannot rule out Anterior infarct , age undetermined Abnormal ECG When compared with ECG of 26-AUG-2018 10:47, Vent. rate has increased BY [address] Flor ABBASI ([id number]) on 08/31/2018 10:30:34 AM Referred By: OLLIE Confirmed By:DR. Flor ABBASI
--- NOTE | 2018-08-31 14:49 | PRG ---
DATE OF SERVICE: 08/31/2018 SUBJECTIVE: This is a 48-year-old female, denies any pain or discomfort or shortness of breath. OBJECTIVE: VITAL SIGNS: Sats are 92 on room air, respirations 21, pulse 110, temperature 98, blood pressure 120 /76. CHEST: No wheezing or crackles. CARDIAC: Normal S1 and S2, no gallops or masses. LABORATORY DATA: Phosphorus 2.1, otherwise magnesium is normal. H and H is 7 and 21, platelet count is normal. IMPRESSION: 1. Status post peritonitis. 2. Morbid obesity. She is on a TPN, supportive care, and PT. Broad-spectrum antibiotics. We will follow.
--- NOTE | 2018-08-31 14:50 | PRG ---
DATE OF SERVICE: 08/31/2018 SUBJECTIVE: Ms. Kaplan is a 48-year-old obese woman, who is postoperative day #3, status post exp loratory laparotomy with repair of small bowel injury x3 and placement of a gastrostomy tube in the r emnant stomach. The patient is awake and alert today and reports adequate pain control. Her urinary output has been adequate. She denies any bowel movements. OBJECTIVE: VITAL SIGNS: This morning includes blood pressure 121/76, pulse 110, respiratory rate is 21, tempera ture is 98.2 degrees Fahrenheit, oxygen saturation 93% on room air. HEART: Reveals regular rate with sinus tachycardia. No murmurs or gallops auscultated. LUNGS: Clear to auscultation bilaterally. Her breathing is regular and unlabored. ABDOMEN: Soft and obese with incisional tenderness to palpation. She has no gross rebound tendernes s present. NEUROLOGICAL EXAMINATION: Reveals no focal deficits present. LABORATORY FINDINGS: Today includes a CBC with white blood cell count of 15.3, which is a decrease f rom 18.8 yesterday. Hemoglobin and hematocrit remained stable at 7.3 and 22.2 respectively. Platele t count is 233,000. Metabolic profile, phosphorus noted at 2.1. IMPRESSION: 1. She is postoperative day #3, status post exploratory laparotomy and repair of small bowel injurie s. The patient remains hemodynamically stable. We will continue with bowel rest until return of bow el function. 2. We will check and correct abnormal electrolytes. Above findings and plan discussed with the patient, who indicates understanding of the information gi miriam. I have answered her questions.
[2018-08-31] MEDS: Potassium Phosphate 40 MMOL in Sodium Chloride 0.9% 500 ML IVPB SCH (15:37)
[2018-08-31] MEDS: MAGNESIUM SULFATE IV SCH (21:57)
[2018-08-31] MEDS: Enoxaparin Sodium 40 MG/0.4 ML SYRINGE SC SCH (21:57)
[2018-08-31] MEDS: POTASSIUM PHOSPHATE IV SCH (21:57)
[2018-08-31] MEDS: [UNRECOGNIZED DRUG - OTHER] IV SCH (21:57)
[2018-08-31] MEDS: MULTIVITAMINS IV SCH (21:57)
[2018-09-01] MEDS: D5 1/2 NS w/20 mEq KCL 1,000 ML IV SCH ×3 (02:50→21:57)
[2018-09-01] MEDS: Piperacillin/Tazobactam 3.375 GM in Sodium Chloride 0.9% 100 ML IVPB SCH ×4 (04:21→21:57)
[2018-09-01 05:09] LABS: Phosphorus 3.4 mg/dL (2.3-4.7)
[2018-09-01 05:16] LABS: Band 8 % (5-11); Eosinophils 3 % (0-10); Hemoglobin 7.8 g/dL (12.0-16.0); Lymphocytes 17 % (21-51); MDiff Complete? YES; Mean Corpuscular HGB CONC 32.4 g/dL (32.0-36.0); Mean Corpuscular Hemoglobin 30.1 pg (27.0-31.0); Mean Platelet Volume 7.3 fL (7.4-10.4); Monocytes 6 % (0-10); Neutrophil 66 % (42-75); PLT Morphology Comment Appears Adequate; Platelet Count 285 thou/uL (130-400); RBC Distribution Width 12.4 % (11.5-14.5); RBC Morphology Normal; Red Blood Cell (RBC) Count 2.57 mill/uL (4.20-5.40); White Blood Cell (WBC) Count 14.4 thou/uL (4.8-10.8)
[2018-09-01] MEDS: Pantoprazole 40 MG VIAL IVP SCH (09:03)
[2018-09-01] MEDS: Ondansetron PF 4 MG/2 ML Vial IVP PRN ×2 (10:21→14:19)
--- NOTE | 2018-09-01 12:30 | PRG ---
DATE OF SERVICE: 09/01/2018 SUBJECTIVE: Ms. Kaplan is a 48-year-old woman who I am seeing on behalf of Dr. Boyer. The guillaume ent is postoperative day #4 status post exploratory laparotomy and repair of small bowel injury x3. She reports feeling better today. Her pain is now down to 3/10. She denies any nausea, vomiting. U rinary output is adequate for this patient's weight. OBJECTIVE: VITAL SIGNS: Today includes blood pressure 138/75, pulse is 106, respiratory rate is 19, temperature is 99.6 degrees Fahrenheit. Oxygen saturation is 95% on room air. HEENT: Reveals normocephalic and atraumatic. Pupils equal, round, and reactive to light and accommo dation. HEART: Reveals regular rate with sinus tachycardia. No murmurs or gallops auscultated. LUNGS: Clear to auscultation bilaterally. Breathing regular and unlabored. ABDOMEN: Soft and nondistended. Incision is intact, clean, and dry. NEUROLOGIC: Reveals no focal deficits present. LABORATORY FINDINGS: Includes a CBC with 14,400 white blood cells, hemoglobin and hematocrit remaine d stable at 7.8 and 23.9 respectively. Platelet count is 285,000. IMPRESSION: Postop day #4 status post exploratory laparotomy. The patient is hemodynamically stable . PLAN: Continue bowel rest and TPN. Increase activity per physical and occupational therapy.
--- NOTE | 2018-09-01 13:01 | PRG ---
DATE OF SERVICE: 09/01/2018 SUBJECTIVE: This morning, she is better, less abdominal pain, less cough. OBJECTIVE: VITAL SIGNS: Sats are , pulse 100, temperature 99, blood pressure 170/69. CHEST: Decreased breath sounds, no wheezing. CARDIAC: Normal S1 and S2, no gallops. ABDOMEN: Distended, but soft. LABORATORY DATA: White count 14,000, H and H 7 and 23, platelet count 283. IMPRESSION: 1. Status post laparoscopy for small bowel injury. 2. Peritonitis. 3. Morbid obesity. PLAN: Continue supportive care, neb treatments, antibiotics. All cultures so far negative. We will follow.
[2018-09-01] MEDS: Potassium Phosphate 40 MMOL in Sodium Chloride 0.9% 500 ML IVPB SCH (15:42)
[2018-09-01] MEDS: MAGNESIUM SULFATE IV SCH (21:57)
[2018-09-01] MEDS: MULTIVITAMINS IV SCH (21:57)
[2018-09-01] MEDS: Enoxaparin Sodium 40 MG/0.4 ML SYRINGE SC SCH (21:57)
[2018-09-01] MEDS: [UNRECOGNIZED DRUG - OTHER] IV SCH (21:57)
[2018-09-01] MEDS: POTASSIUM PHOSPHATE IV SCH (21:57)
[2018-09-02] MEDS: Piperacillin/Tazobactam 3.375 GM in Sodium Chloride 0.9% 100 ML IVPB SCH ×4 (05:01→21:47)
[2018-09-02 05:52] LABS: Phosphorus 4.2 mg/dL (2.3-4.7)
[2018-09-02 06:23] LABS: Band 1 % (5-11); Hypochromia SLIGHT = 6-15 cells (100X) (0-5/hpf); Lymphocytes 13 % (21-51); MDiff Complete? YES; Mean Corpuscular HGB CONC 31.4 g/dL (32.0-36.0); Mean Corpuscular Hemoglobin 28.9 pg (27.0-31.0); Mean Corpuscular Volume 91.9 fL (78.0-98.0); Mean Platelet Volume 7.5 fL (7.4-10.4); Monocytes 11 % (0-10); Neutrophil 75 % (42-75); PLT Morphology Comment Appears Adequate; Platelet Count 355 thou/uL (130-400); RBC Distribution Width 12.1 % (11.5-14.5); Red Blood Cell (RBC) Count 2.77 mill/uL (4.20-5.40); White Blood Cell (WBC) Count 14.4 thou/uL (4.8-10.8)
--- NOTE | 2018-09-02 08:37 | PRG ---
DATE OF SERVICE: 09/02/2018 She feels better, had no acute complaints. PHYSICAL EXAMINATION: VITAL SIGNS: Temperature 99.1, pulse 92, respiration 16, O2 sat 97% on room air, blood pressure 133/ 84. HEENT: Unremarkable. NECK: No JVD. CHEST: Clear. CARDIAC: S1 and S2 regular. ABDOMEN: Soft. EXTREMITIES: No edema. LABORATORY DATA: White blood cell count 14.4, hematocrit 25.5, platelet count 355. ASSESSMENT: 1. Status post laparotomy for bleeding in the gastric remnant. 2. Improved ____ laboratory response. 2. Improved peritonitis. PLAN: She can move out to the floor at any time. She is continuing antibiotics. She is to have a b arium swallow today.
[2018-09-02] MEDS: Pantoprazole 40 MG VIAL IVP SCH (10:55)
[2018-09-02] MEDS ORDERED: GASTROGRAFIN 30 ML BOT ONE (11:08)
--- NOTE | 2018-09-02 12:31 | RAD ---
BARIUM SWALLOW: HISTORY: Status post bariatric surgery revision. EXPOSURE: 0.6 minutes. 29.633 Gy per cm2. FINDINGS: The patient was administered a total of 30 mL of Gastrografin, which passes from the esophagus into t he gastric remnant and into the jejunostomy without any evidence of obstruction. No evidence of leak or extravasation. Post procedure supine and upright radiographs demonstrate contrast in the small b owel, as well as in the gastric remnant. No evidence of extravasation. Overlying drainage catheters are identified, as is a dorsal column stimulator. IMPRESSION: No evidence of leak or extravasation. The results of the study were discussed with Dr. Boyer on at 10:25 a.m. CODE CR POS: SERGO
--- NOTE | 2018-09-02 15:30 | PRG ---
DATE OF SERVICE: 09/02/2018 SUBJECTIVE: Ms. Kaplan feels good today. She had her swallow study this morning without difficul ty. There is no leak. She is now transferred to the surgical floor. She has been out of bed. OBJECTIVE: VITAL SIGNS: Her pulse runs from 100-110, blood pressure 142/84, respirations 18, she is afebrile. Contreras, 700. LABORATORY DATA: White cell count is 14, hemoglobin is 8, creatinine was checked on the 16, creati nine was 0.57. 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 PLAN: Start clear liquid diet. If she tolerates that today and tomorrow, we will switch to oral guerda n control, stop TPN and her catheter is going to be discontinued today. Begin to mobilize.
[2018-09-02] MEDS: D5 1/2 NS w/20 mEq KCL 1,000 ML IV SCH ×2 (15:49→21:45)
[2018-09-02] MEDS: Potassium Phosphate 40 MMOL in Sodium Chloride 0.9% 500 ML IVPB SCH (16:26)
[2018-09-02] MEDS: Acyclovir 400 mg Tablet PO SCH (21:46)
[2018-09-02] MEDS: Enoxaparin Sodium 40 MG/0.4 ML SYRINGE SC SCH (21:47)
[2018-09-02] MEDS: MAGNESIUM SULFATE IV SCH (22:43)
[2018-09-02] MEDS: MULTIVITAMINS IV SCH (22:43)
[2018-09-02] MEDS: [UNRECOGNIZED DRUG - OTHER] IV SCH (22:43)
[2018-09-02] MEDS: POTASSIUM PHOSPHATE IV SCH (22:43)
[2018-09-03] MEDS: Piperacillin/Tazobactam 3.375 GM in Sodium Chloride 0.9% 100 ML IVPB SCH ×4 (05:05→21:31)
[2018-09-03] MEDS: D5 1/2 NS w/20 mEq KCL 1,000 ML IV SCH (05:05)
[2018-09-03 07:03] LABS: ALT (SGPT) 52 U/L (8-55); AST (SGOT) 41 U/L (5-34); Albumin 2.5 g/dL (3.5-5.0); Alkaline Phosphatase 126 U/L (40-150); Anion Gap 10 mmol/L (10-20); BUN (Urea Nitrogen) 8 mg/dL (7.0-18.7); Bilirubin, Total 0.4 mg/dL (0.2-1.2); Calc. Creatinine Clearance 233 mL/min (70-130); Calcium 8.8 mg/dL (7.8-10.44); Carbon Dioxide 24 mmol/L (22-29); Chloride 106 mmol/L (98-107); Estimated GFR-MDRD Greater than 90; Globulin 3.1 g/dL (2.4-3.5); Glucose 137 mg/dL (70-105); Phosphorus 4.2 mg/dL (2.3-4.7); Potassium 4.1 mmol/L (3.5-5.1); Protein, Total 5.6 g/dL (6.0-8.3); Sodium 136 mmol/L (136-145)
[2018-09-03 07:47] LABS: Band 12 % (5-11); Eosinophils 1 % (0-10); Hemoglobin 7.5 g/dL (12.0-16.0); Lymphocytes 10 % (21-51); MDiff Complete? YES; Mean Corpuscular HGB CONC 31.6 g/dL (32.0-36.0); Mean Corpuscular Hemoglobin 29.1 pg (27.0-31.0); Mean Corpuscular Volume 92.1 fL (78.0-98.0); Mean Platelet Volume 7.5 fL (7.4-10.4); Metamyelocyte 1 % (0-0); Monocytes 3 % (0-10); Myelocyte 4 % (0-0); Neutrophil 68 % (42-75); PLT Morphology Comment Appears Increased; Platelet Count 438 thou/uL (130-400); Polychromasia SLIGHT = 2-3 cells (100X) (0-2/hpf); RBC Distribution Width 12.2 % (11.5-14.5); Reactive Lymphocytes 1 % (0-10); Red Blood Cell (RBC) Count 2.58 mill/uL (4.20-5.40); Toxic Granulation SLIGHT; White Blood Cell (WBC) Count 13.3 thou/uL (4.8-10.8)
[2018-09-03] MEDS: Acyclovir 400 mg Tablet PO SCH ×3 (08:08→21:30)
[2018-09-03] MEDS: Pantoprazole 40 MG VIAL IVP SCH (08:09)
[2018-09-03] MEDS ORDERED: D5 1/2 NS w/20 mEq KCL 1,000 ML IV SCH (08:46)
--- NOTE | 2018-09-03 13:12 | PRG ---
DATE OF SERVICE: 09/03/2018 Ms. Kaplan is doing well, tolerating a clear liquid diet. PHYSICAL EXAMINATION: VITAL SIGNS: She is afebrile now. Vital signs are stable. : Urine output is brisk. She is urinating without catheter. ABDOMEN: G-tube output is down, still bilious. JPs are serosanguineous. Her abdomen is soft. Her wounds are healing well. Her hemoglobin is stable. ASSESSMENT: Postop laparotomy, status post gastric bypass. PLAN: Stop TPN, changed to oral pain control.
[2018-09-03] MEDS: Potassium Phosphate 40 MMOL in Sodium Chloride 0.9% 500 ML IVPB SCH (15:27)
[2018-09-03] MEDS: Ondansetron PF 4 MG/2 ML Vial IVP PRN (18:21)
[2018-09-03] MEDS: Enoxaparin Sodium 40 MG/0.4 ML SYRINGE SC SCH (21:30)
[2018-09-04] MEDS: Hydrocodone-Acetamin 15 ML UDCUP PO PRN ×3 (00:42→22:01)
[2018-09-04] MEDS: Piperacillin/Tazobactam 3.375 GM in Sodium Chloride 0.9% 100 ML IVPB SCH ×4 (04:01→22:01)
[2018-09-04 06:51] LABS: ALT (SGPT) 45 U/L (8-55); AST (SGOT) 37 U/L (5-34); Albumin 2.5 g/dL (3.5-5.0); Alkaline Phosphatase 125 U/L (40-150); Anion Gap 9 mmol/L (10-20); BUN (Urea Nitrogen) 7 mg/dL (7.0-18.7); Bilirubin, Total 0.5 mg/dL (0.2-1.2); Calc. Creatinine Clearance 225 mL/min (70-130); Calcium 8.4 mg/dL (7.8-10.44); Carbon Dioxide 25 mmol/L (22-29); Chloride 106 mmol/L (98-107); Estimated GFR-MDRD Greater than 90; Glucose 90 mg/dL (70-105); Potassium 3.7 mmol/L (3.5-5.1); Protein, Total 5.5 g/dL (6.0-8.3); Sodium 136 mmol/L (136-145)
[2018-09-04 08:38] VITALS: BMI 40.5
[2018-09-04] MEDS: Pantoprazole 40 MG VIAL IVP SCH (10:28)
[2018-09-04] MEDS: Acyclovir 400 mg Tablet PO SCH ×3 (10:28→20:22)
[2018-09-04] MEDS: Enoxaparin Sodium 40 MG/0.4 ML SYRINGE SC SCH (20:21)
[2018-09-05] MEDS: Piperacillin/Tazobactam 3.375 GM in Sodium Chloride 0.9% 100 ML IVPB SCH ×4 (03:44→21:18)
--- NOTE | 2018-09-05 08:53 | PRG ---
DATE OF SERVICE: 09/05/2018 Ms. Kaplan is doing well. She is tolerating the full liquid. She is ambulating, but not often. She is afebrile and her vital signs are stable. She has tenderness at her G-tube site. On exam, her midline incision is healing well. ASSESSMENT: Postoperative laparotomy for peritonitis, postoperative significant ileus with remnant d ilation after gastric bypass. PLAN: Likely home today or tomorrow.
[2018-09-05] MEDS: Acyclovir 400 mg Tablet PO SCH ×3 (09:38→21:19)
[2018-09-05] MEDS: Pantoprazole 40 MG VIAL IVP SCH (09:38)
[2018-09-05] MEDS: Fluconazole In NaCl,Iso-Osm 200 MG in Premix Bag 1 BAG IVPB SCH (09:38)
[2018-09-05] MEDS: Enoxaparin Sodium 40 MG/0.4 ML SYRINGE SC SCH (21:19)
[2018-09-06] MEDS: Piperacillin/Tazobactam 3.375 GM in Sodium Chloride 0.9% 100 ML IVPB SCH ×2 (03:35→09:07)
[2018-09-06] MEDS: Hydrocodone-Acetamin 15 ML UDCUP PO PRN (03:39)
[2018-09-06] MEDS: Pantoprazole 40 MG VIAL IVP SCH (09:06)
[2018-09-06] MEDS: Fluconazole In NaCl,Iso-Osm 200 MG in Premix Bag 1 BAG IVPB SCH (09:07)
[2018-09-06] MEDS: Acyclovir 400 mg Tablet PO SCH (09:07)
[2018-09-06 11:55] VITALS: BP 111/71; TEMP 98.1
--- NOTE | 2018-09-06 14:08 | DIS ---
DATE OF ADMISSION: 08/26/2018 DATE OF DISCHARGE: 09/06/2018 ADMIT DIAGNOSIS: Morbid obesity. DISCHARGE DIAGNOSIS: Morbid obesity. PROCEDURES: 1. Laparoscopic gastric bypass by Dr. Boyer without complication. 2. Reexploration via laparotomy with placement of G-tube and dilated remnant stomach. SURGEON: Dr. Boyer. CONDITION AT DISCHARGE: Improved. HOSPITAL COURSE: The patient had significant postop nausea associated with dry heaving. She became very tachycardic and was taken back to the operating room for exploration. She was found to not have a leak; however, she had a dilation of her remnant stomach. This remnant stomach was full of old bl ood. The thought was that her remnant stomach could not drain fast enough; however, her jejunojejuno stomy did not appear stenotic. The feeding tube was placed in the remnant stomach. The patient's po stop course after that was uneventful. Swallow study on the revealed no obvious leak along her staple line. She was started on a clear liquid diet, which she is tolerating. She is going home wit h a G-tube in place. Her drains have been removed. She does not need any more antibiotics. She has no signs of infection. She will follow up with me in next week for staple removal.
== END 2018-09-06 12:58 | disposition home or self-care (01) | DRG 619 ==
LOC: SURG A 08-26 09:51 → SURG B 08-26 15:28 → IMCU/EMU 08-28 → SURG B 09-02 14:27
PROVIDERS: ADMIT Surgery; ATTEND Surgery
PROC: 0D164ZA Bypass Stomach to Jejunum, Percutaneous Endoscopic Approach (ICD-10-PCS; principal; 2018-08-26)
PROC: 0WJP0ZZ Inspection of Gastrointestinal Tract, Open Approach (ICD-10-PCS; 2018-08-28)
PROC: 0DJ08ZZ Inspection of Upper Intestinal Tract, Via Natural or Artificial Opening Endoscopic (ICD-10-PCS; 2018-08-28)
PROC: 0D9670Z Drainage of Stomach with Drainage Device, Via Natural or Artificial Opening (ICD-10-PCS; 2018-08-28)
PROC: 0DQ84ZZ Repair Small Intestine, Percutaneous Endoscopic Approach (ICD-10-PCS; 2018-08-28)
DX: E66.01 Morbid (severe) obesity due to excess calories (principal); K65.9 Peritonitis, unspecified; R65.10 Systemic inflammatory response syndrome (SIRS) of non-infectious origin without acute organ dysfunction; S36.498A Other injury of other part of small intestine, initial encounter; K22.10 Ulcer of esophagus without bleeding; Z68.41 Body mass index [BMI] 40.0-44.9, adult; G47.33 Obstructive sleep apnea (adult) (pediatric); E83.31 Familial hypophosphatemia; R00.0 Tachycardia, unspecified; I10 Essential (primary) hypertension; M54.9 Dorsalgia, unspecified; G89.29 Other chronic pain; Z79.899 Other long term (current) drug therapy; Z79.2 Long term (current) use of antibiotics; F41.9 Anxiety disorder, unspecified; N28.9 Disorder of kidney and ureter, unspecified
CPT/HCPCS: 36415; 36416; 71045; 74220; 80048; 80053; 83735; 84100; 85025; 93005; 93010; C9113; J0131; J1100; J1170; J1450; J1644; J1650; J2001; J2250; J2405; J2543; J2550; J2704; J2765; J3010; J3475; J7050; J7620; P9047; S0028

== ENCOUNTER 2018-08-21 09:06 | Outpatient (CLI) | payer BC ==
[2018-08-21 10:44] LABS: #Basophils 0.1 thou/uL (0.0-0.2); #Eosinphils 0.1 thou/uL (0.0-0.7); #Lymphocytes 2.2 thou/uL (1.20-3.40); #Neutrophils 7.9 thou/uL (1.40-6.50); %Basophils 0.6 % (0.0-1.0); %Eosinophils 0.9 % (0.0-10.0); %Lymphocytes 19.4 % (21.0-51.0); %Monocytes 8.9 % (0.0-10.0); %Neutrophils 70.2 % (42.0-75.0); Hemoglobin 14.7 g/dL (12.0-16.0); Mean Corpuscular Hemoglobin 29.5 pg (27.0-31.0); Mean Corpuscular Volume 89.4 fL (78.0-98.0); Mean Platelet Volume 7.4 fL (7.4-10.4); Platelet Count 364 thou/uL (130-400); RBC Distribution Width 11.6 % (11.5-14.5); Red Blood Cell (RBC) Count 4.97 mill/uL (4.20-5.40); White Blood Cell (WBC) Count 11.3 thou/uL (4.8-10.8)
--- NOTE | 2018-08-21 10:52 | RAD ---
TWO VIEWS CHEST: Date: 08-21-18 Provided Clinical History: Pre op. Comparison: 09-07-09 FINDINGS: Cardiac and mediastinal silhouette is within normal limits. Lungs appear clear. No pleural fluid or p neumothorax apparent. Dorsal column stimulator device and cholecystectomy clips are seen. IMPRESSION: No evidence for an acute cardiopulmonary process. POS: [facility]
[2018-08-21 10:56] LABS: ALT (SGPT) 14 U/L (8-55); AST (SGOT) 13 U/L (5-34); Albumin 3.9 g/dL (3.5-5.0); Alkaline Phosphatase 83 U/L (40-150); Anion Gap 11 mmol/L (10-20); BUN (Urea Nitrogen) 18 mg/dL (7.0-18.7); Bilirubin, Direct 0.2 mg/dL (0.1-0.3); Bilirubin, Total 0.6 mg/dL (0.2-1.2); Calc. Creatinine Clearance 0 mL/min (70-130); Calcium 9.1 mg/dL (7.8-10.44); Carbon Dioxide 21 mmol/L (22-29); Chloride 104 mmol/L (98-107); Estimated GFR-MDRD Greater than 90; Globulin 3.1 g/dL (2.4-3.5); Glucose 97 mg/dL (70-105); Potassium 3.6 mmol/L (3.5-5.1); Sodium 132 mmol/L (136-145)
[2018-08-21 11:19] LABS: Hemoglobin A1c 5.2 % (4.0-6.0)
--- NOTE | 2018-08-21 12:48 | EKG ---
Test Reason : Blood Pressure : / mmHG Vent. Rate : 067 BPM Atrial Rate : 067 BPM P-R Int : 056 ms QRS Dur : 074 ms QT Int : 416 ms P-R-T Axes : 000 024 052 degrees QTc Int : 439 ms Poor data quality, interpretation may be adversely affected Sinus rhythm Not acceptable for interpretation No previous ECGs available Confirmed by DR. Merrick GREEN ([id number]) on 08/21/2018 12:47:41 PM Referred By: CARLITA Confirmed By:DR. Merrick GREEN
== END 2018-08-21 09:07 | disposition home or self-care (01) ==
LOC: LABBT 09:06
PROVIDERS: ATTEND Surgery
DX: Z01.818 Encounter for other preprocedural examination (principal); E66.01 Morbid (severe) obesity due to excess calories
CPT/HCPCS: 71046; 80053; 80076; 83036; 85025; 93005; 93010

== ENCOUNTER 2018-09-19 09:47 | Outpatient (CLI) | payer BC ==
[2018-09-19] MEDS ORDERED: MD-Gastroview 120 ML BOT ONE (10:54)
--- NOTE | 2018-09-19 12:08 | RAD ---
SMALL BOWEL GASTROGRAFIN FOLLOW THROUGH: Date: 09-19-18 History: Gaseous outflow obstruction, assess for bowel obstruction. FINDINGS: Gastrostomy tube overlies left upper quadrant on cardiographer imaging. Clips in right upper quadrant suggest prior cholecystectomy. Incompletely imaged dorsal column stimulators overlie the lower thoracic spin e and upper lumbar spine. Gastrografin was administered via the patient's gastrostomy tube. At 15 minutes there is contrast med ia within the stomach, duodenum, and numerous nondilated loops of small bowel. At 30 minutes there is contrast media extending into the colon. IMPRESSION: Rapid transit from the stomach to the colon, occurring within 30 minutes. No evidence for small bowel obstruction or gastric outlet obstruction. POS: SERGO
== END 2018-09-19 09:48 | disposition home or self-care (01) ==
LOC: RAD 09:47
PROVIDERS: ATTEND Surgery
DX: K31.1 Adult hypertrophic pyloric stenosis (principal)
CPT/HCPCS: 74250

== ENCOUNTER 2019-04-01 11:13 | Day surgery (SDC) | payer BC ==
[2019-03-31 12:32] VITALS: BMI 31.3
[2019-04-01] MEDS ORDERED: CEFAZOLIN 1 GM VIAL ONE (11:43)
[2019-04-01] MEDS ORDERED: Sodium Chloride 0.9% 100 ML ONE (11:43)
[2019-04-01] MEDS ORDERED: Midazolam HCl 2 mg/2 ml Vial ONE (12:31)
[2019-04-01] MEDS ORDERED: PROPOFOL 40 ML ONE (12:32)
[2019-04-01] MEDS ORDERED: Fentanyl 100 MCG/2 ML VIAL ONE (12:32)
[2019-04-01] MEDS ORDERED: Bupivacaine HCl 0.5%/Epinephrine 1:200,000/PF 30 ml Vial ONE (12:40)
[2019-04-01] MEDS ORDERED: PROPOFOL 20 ML ONE (14:03)
[2019-04-01] MEDS ORDERED: PROPOFOL 200 MG/20 ML VIAL ONE (14:31)
--- NOTE | 2019-04-01 16:52 | OP ---
DATE OF PROCEDURE: 04/01/2019 PREOPERATIVE DIAGNOSES: 1. Chronic pain syndrome. 2. Lumbar radiculopathy. POSTOPERATIVE DIAGNOSES: 1. Chronic pain syndrome. 2. Lumbar radiculopathy. PROCEDURE PERFORMED: Spinal cord stimulator generator replacement. SPECIMENS REMOVED: Old battery intact and discarded. ESTIMATED BLOOD LOSS: Minimal. DESCRIPTION OF PROCEDURE: The patient was taken to the procedure room and placed prone on the procedure room table. A time-out was performed. We prepped the skin over the battery with ChloraPrep. Sterile drapes were applied. We anesthetized the skin over the battery pocket with 0.5% Marcaine with epinephrine. We made an incision with a 10 blade scalpel and blunt dissected this down to the pocket. We then removed the old battery. We loosened the leads and took the leads out and inserted them into the new battery. The old battery was discarded. We torqued down the leads to affix the leads to the battery, so they would not slip. Impedances were checked and were all good. The battery was slipped into the original pocket. The fascia and pocket layer were approximated using 2-0 Vicryl suture in a simple interrupted fashion. The skin layer was approximated using a 3-0 Monocryl Rapide suture in a subcutaneous stitch. Dermabond was used as an occlusive dressing. Sterile 4x4s were placed with tape. The patient was taken to the recovery room under stable condition. Job ID: [id number]
== END 2019-04-01 15:00 | disposition home or self-care (01) ==
LOC: SDC 11:13
PROVIDERS: ATTEND Specialist
PROC: 0JH70DZ Insertion of Multiple Array Stimulator Generator into Back Subcutaneous Tissue and Fascia, Open Approach (ICD-10-PCS; principal; 2019-04-01)
DX: G89.4 Chronic pain syndrome (principal); M54.16 Radiculopathy, lumbar region; M48.062 Spinal stenosis, lumbar region with neurogenic claudication; M47.812 Spondylosis without myelopathy or radiculopathy, cervical region; M46.1 Sacroiliitis, not elsewhere classified; I10 Essential (primary) hypertension; F41.9 Anxiety disorder, unspecified; E66.9 Obesity, unspecified; Z68.31 Body mass index [BMI] 31.0-31.9, adult; Z79.899 Other long term (current) drug therapy
CPT/HCPCS: 93005; 93010; J0670; J0690; J2250; J2704; J3010; J3490

== ENCOUNTER 2019-10-13 14:51 | Outpatient (CLI) | payer BC ==
--- NOTE | 2019-10-13 15:51 | CT ---
EXAM: CT brain without and with contrast HISTORY: Dizzy spells and headache COMPARISON: None TECHNIQUE: Multiple contiguous axial images were obtained and a CT of the brain without and with cont rast. FINDINGS: The brain is normal in morphology and attenuation without focal lesions or confluent areas of infarction. There is no evidence of hydrocephalus, intracranial hemorrhage, or extra-axial fluid collection. No abnormal enhancement is seen. The calvarium and overlying soft tissues are unremarkable. The visualized paranasal sinuses and masto id air cells are well aerated. IMPRESSION: No evidence of acute intracranial abnormality
== END 2019-10-13 14:52 | disposition home or self-care (01) ==
LOC: BICCT 14:51
PROVIDERS: ATTEND Physician Assistant
DX: R51 Headache (principal); R25.1 Tremor, unspecified; R42 Dizziness and giddiness; Z87.828 Personal history of other (healed) physical injury and trauma
CPT/HCPCS: 70470

== ENCOUNTER 2020-02-17 15:48 | Day surgery (SDC) | payer BC ==
[2020-02-17] MEDS ORDERED: Sodium Chloride 0.9% 20 ML ONE (16:17)
[2020-02-17] MEDS ORDERED: Ondansetron PF 4 MG/2 ML Vial IVP PRN (16:18)
[2020-02-17] MEDS ORDERED: Sodium Chloride 0.9% 1,000 ML IV SCH (16:30)
[2020-02-17 16:47] LABS: #Basophils 0.1 thou/uL (0.0-0.2); #Lymphocytes 1.5 thou/uL (1.20-3.40); #Monocytes 0.7 thou/uL (0.11-0.59); %Eosinophils 0.7 % (0.0-10.0); %Lymphocytes 23.6 % (21.0-51.0); %Monocytes 11.1 % (0.0-10.0); %Neutrophils 63.6 % (42.0-75.0); Hemoglobin 15.6 g/dL (12.0-16.0); Mean Corpuscular HGB CONC 33.6 g/dL (32.0-36.0); Mean Corpuscular Volume 92.3 fL (78.0-98.0); Mean Platelet Volume 7.5 fL (7.4-10.4); Platelet Count 311 thou/uL (130-400); RBC Distribution Width 11.3 % (11.5-14.5); Red Blood Cell (RBC) Count 5.04 mill/uL (4.20-5.40); White Blood Cell (WBC) Count 6.2 thou/uL (4.8-10.8)
[2020-02-17 16:51] VITALS: BP 125/85; TEMP 98.8
[2020-02-17] MEDS ORDERED: Multivitamins, Adult 10 ML, Thiamine HCl 100 MG in Sodium Chloride 0.9% 1,000 ML IV SCH (17:30)
[2020-02-17 18:02] LABS: ALT (SGPT) 9 U/L (8-55); AST (SGOT) 10 U/L (5-34); Albumin 3.9 g/dL (3.5-5.0); Alkaline Phosphatase 83 U/L (40-110); Anion Gap 16 mmol/L (10-20); BUN (Urea Nitrogen) 10 mg/dL (7.0-18.7); Bilirubin, Total 0.8 mg/dL (0.2-1.2); Calc. Creatinine Clearance 0 mL/min (70-130); Calcium 8.9 mg/dL (7.8-10.44); Carbon Dioxide 20 mmol/L (22-29); Chloride 106 mmol/L (98-107); Estimated GFR-MDRD Greater than 90; Globulin 2.7 g/dL (2.4-3.5); Glucose 89 mg/dL (70-105); Lipase 13 U/L (8-78); Potassium 3.1 mmol/L (3.5-5.1); Protein, Total 6.6 g/dL (6.0-8.3); Sodium 139 mmol/L (136-145)
[2020-02-17 18:26] LABS: Ferritin 90.88 ng/mL (10-291)
[2020-02-17 18:39] LABS: Vitamin B12 Greater than 2000 pg/mL (211-911)
== END 2020-02-17 19:30 | disposition home or self-care (01) ==
LOC: ONC/OP 15:48
PROVIDERS: ATTEND Surgery
DX: E86.0 Dehydration (principal)
CPT/HCPCS: 80053; 82306; 82607; 82728; 83690; 84425; 85025; 96361; 96365; 96366; J3411; J7050

== ENCOUNTER 2020-02-27 07:45 | Outpatient (CLI) | payer BC ==
--- NOTE | 2020-02-27 09:03 | CT ---
EXAM: CT abdomen and pelvis with IV contrast PROVIDED CLINICAL HISTORY: Abdominal pain COMPARISON: None FINDINGS: The visualized lung bases are free of significant opacity. The solid abdominal organs demonstrate an unremarkable CT appearance. There is no bowel dilatation, inflammatory fat stranding, free fluid or free air apparent. There is n o evidence for appendicitis. Postoperative changes of Navin-en-Y gastric bypass are demonstrated. Changes of prior cholecystectomy are demonstrated with attendant mild prominence of the intrahepatic biliary system. There is a 4.9 cm cystic structure involving the left ovary without overt nodularity or septation. Post hysterectomy. No regional lymph node enlargement apparent. The regional major vascular structures appear unremarkable. The osseous structures demonstrate no concerning lytic or blastic lesions. Dorsal column stimulator d evice and partially visualized associated wires. IMPRESSION: 1. No definite evidence for an acute process. 2. 4.9 cm left adnexal cystic structure, possibly a physiologic cyst. Follow-up ultrasound in 12 week s is recommended to evaluate for resolution.
[2020-02-27] MEDS ORDERED: Iopamidol 370 76% 100 ML VIAL ONE (10:02)
== END 2020-02-27 07:46 | disposition home or self-care (01) ==
LOC: CT 07:45
PROVIDERS: ATTEND Internal Medicine Gastroenterology
DX: R10.9 Unspecified abdominal pain (principal); N83.8 Other noninflammatory disorders of ovary, fallopian tube and broad ligament
CPT/HCPCS: 74177; Q9967

== ENCOUNTER 2020-06-29 16:11 | Outpatient (CLI) | payer BC ==
--- NOTE | 2020-06-29 16:48 | CT ---
CT cervical spine noncontrast HISTORY: Neck pain. Prior injury. Bilateral radiculopathy. FINDINGS: Vertebral body heights are maintained. There is straightening of the normal lordotic curvat ure. Cervicothoracic junction is intact. No acute fracture or dislocation. Mild osteophytosis throughout the vertebral bodies and facets. Disc space narrowing at the C5-6, C6-7 , and C7-T1 levels. No acute fracture, dislocation, or aggressive osseous erosions. No focal disc herniation is apparent. No high grade foraminal or central canal stenosis. IMPRESSION : Mild degenerative changes. No acute osseous abnormalities or focal neural compression evident.
== END 2020-06-29 16:12 | disposition home or self-care (01) ==
LOC: BICCT 16:11
PROVIDERS: ATTEND Nurse Practitioner Family
DX: M47.812 Spondylosis without myelopathy or radiculopathy, cervical region (principal)
CPT/HCPCS: 72125

== ENCOUNTER 2020-07-01 08:51 | Outpatient (CLI) | payer BC ==
--- NOTE | 2020-07-01 09:27 | RAD ---
EXAM: XR Cervical Spine 4 View Min PROVIDED CLINICAL HISTORY: Spondylosis of cervical spine region without myelopathy. Patient states tingling down right arm. COMPARISON: CT cervical spine on 06/29/2020 FINDINGS: C1-C7 is seen on the lateral view. T1 vertebral body is mostly obscured. The vertebral body heights a re within normal limits without fracture or subluxation seen involving the cervical spine. Mild degenerative change are seen in the lower cervical spine with loss of intervertebral disc space heigh t and osteophyte formation at the C5-6 and C6-7 levels. Prevertebral soft tissues are within normal limits. IMPRESSION: Mild degenerative changes in the lower cervical spine without fracture or subluxation. Cervicothoraci c junction is mostly obscured.
== END 2020-07-01 08:52 | disposition home or self-care (01) ==
LOC: BICRAD 08:51
PROVIDERS: ATTEND Nurse Practitioner Family
DX: M47.812 Spondylosis without myelopathy or radiculopathy, cervical region (principal)
CPT/HCPCS: 72050

== ENCOUNTER 2020-10-25 19:14 | Emergency (ER) | payer BC ==
[2020-10-25] MEDS ORDERED: Ketorolac Tromethamine 30 MG/ML VIAL ONE (20:02)
== END 2020-10-25 20:50 | disposition home or self-care (01) ==
LOC: ERS 19:14
DX: T21.22XA Burn of second degree of abdominal wall, initial encounter (principal); T21.11XA Burn of first degree of chest wall, initial encounter; T22.111A Burn of first degree of right forearm, initial encounter; J45.909 Unspecified asthma, uncomplicated; X12.XXXA Contact with other hot fluids, initial encounter
CPT/HCPCS: 96374; J1885

== ENCOUNTER 2021-03-01 10:29 | Outpatient (CLI) | payer BC | END 2021-03-01 10:30 | disposition home or self-care (01) | LOC: BICCT 10:29 | PROVIDERS: ATTEND Psychiatry & Neurology Neurology | DX: G43.701 Chronic migraine without aura, not intractable, with status migrainosus (principal) | CPT/HCPCS: 70450 ==

== ENCOUNTER 2021-07-04 11:58 | Outpatient (CLI) | payer BC | END 2021-07-04 11:59 | disposition home or self-care (01) | LOC: BICRAD 11:58 | PROVIDERS: ATTEND Family Medicine | DX: R10.9 Unspecified abdominal pain (principal) | CPT/HCPCS: 74018 ==

== ENCOUNTER 2022-03-15 16:52 | Emergency (ER) | payer BC ==
[2022-03-15 18:14] LABS: #Eosinphils 0.1 thou/uL (0.0-0.7); #Lymphocytes 2.1 thou/uL (1.20-3.40); #Monocytes 0.4 thou/uL (0.11-0.59); #Neutrophils 2.4 thou/uL (1.40-6.50); %Basophils 0.8 % (0.0-1.0); %Eosinophils 2.7 % (0.0-10.0); %Lymphocytes 41.8 % (21.0-51.0); %Monocytes 7.5 % (0.0-10.0); %Neutrophils 47.2 % (42.0-75.0); Hemoglobin 14.9 g/dL (12.0-16.0); Mean Corpuscular HGB CONC 33.4 g/dL (32.0-36.0); Mean Corpuscular Hemoglobin 31.8 pg (27.0-31.0); Mean Corpuscular Volume 95.2 fL (78.0-98.0); Mean Platelet Volume 6.9 fL (7.4-10.4); Platelet Count 306 thou/uL (130-400); RBC Distribution Width 11.3 % (11.5-14.5); Red Blood Cell (RBC) Count 4.68 mill/uL (4.20-5.40); White Blood Cell (WBC) Count 5.1 thou/uL (4.8-10.8)
[2022-03-15 18:26] LABS: ALT (SGPT) 13 U/L (8-55); AST (SGOT) 17 U/L (5-34); Albumin 4.1 g/dL (3.5-5.0); Alkaline Phosphatase 102 U/L (40-110); Anion Gap 10 mmol/L (10-20); BUN (Urea Nitrogen) 18 mg/dL (9.8-20.1); Bilirubin, Total 0.4 mg/dL (0.2-1.2); Calc. Creatinine Clearance 0 mL/min (70-130); Calcium 9.7 mg/dL (7.8-10.44); Carbon Dioxide 24 mmol/L (22-29); Chloride 108 mmol/L (98-107); Globulin 3.1 g/dL (2.4-3.5); Glucose 99 mg/dL (70-105); Potassium 3.7 mmol/L (3.5-5.1); Protein, Total 7.2 g/dL (6.0-8.3); Sodium 138 mmol/L (136-145)
== END 2022-03-15 21:05 | disposition home or self-care (01) ==
LOC: ERS 16:52
DX: R60.0 Localized edema (principal)
CPT/HCPCS: 36415; 71045; 85379; 93005

== ENCOUNTER 2022-04-13 10:19 | Outpatient (CLI) | payer BC | END 2022-04-13 11:17 | disposition home or self-care (01) | LOC: ERS 10:19 → EDSTATUS 11:15 → ULT 11:16 | PROVIDERS: ATTEND Specialist | DX: R60.0 Localized edema (principal) ==

== ENCOUNTER 2022-05-15 11:17 | Outpatient (CLI) | payer BC ==
[2022-05-15 13:34] LABS: Hemoglobin 14.1 g/dL (12.0-15.5); Mean Corpuscular HGB CONC 34.2 g/dL (32.0-36.0); Mean Corpuscular Hemoglobin 30.5 pg (27.0-33.0); Platelet Count 318 10x3/uL (150-450); RBC Distribution Width 11.9 % (11.5-14.5); Red Blood Cell (RBC) Count 4.63 10x6/uL (3.90-5.03); White Blood Cell (WBC) Count 5.2 10x3/uL (3.5-10.5)
[2022-05-15 13:51] LABS: INR-International Normal Ratio 0.9; PTT 26.7 sec (22.0-33.0); Prothrombin Time 9.9 sec (9.5-12.1)
[2022-05-15 13:53] LABS: Anion Gap 14 mmol/L (10-20); BUN (Urea Nitrogen) 10 mg/dL (9.8-20.1); Calc. Creatinine Clearance 0 mL/min (70-130); Calcium 9.4 mg/dL (7.8-10.44); Carbon Dioxide 16 mmol/L (22-29); Chloride 112 mmol/L (98-107); Estimated GFR 106; Glucose 160 mg/dL (70-105); Potassium 3.6 mmol/L (3.5-5.1); Sodium 138 mmol/L (136-145)
== END 2022-05-15 11:18 | disposition home or self-care (01) ==
LOC: LABBT 11:17
PROVIDERS: ATTEND Surgery
DX: Z01.812 Encounter for preprocedural laboratory examination (principal); Z20.822 Contact with and (suspected) exposure to COVID-19
CPT/HCPCS: 80048; 85027; 85610; 85730; 87811

== ENCOUNTER 2022-05-18 07:21 | Observation (INO) | payer BC ==
[2022-05-17 14:01] VITALS: BMI 35.6
[2022-05-18] MEDS ORDERED: Famotidine/PF 20 mg/2ml Vial ONE (08:08)
[2022-05-18] MEDS ORDERED: Midazolam HCl 2 mg/2 ml Vial ONE (08:08)
[2022-05-18] MEDS ORDERED: Thrombin 5000 UNITS/5 ML VIAL ONE ×2 (08:57→11:14)
[2022-05-18] MEDS ORDERED: Neomycin-Polymyxin 1 ML AMP ONE (08:57)
[2022-05-18] MEDS ORDERED: fentaNYL Citrate/PF 100 MCG/2 ML SYRINGE ONE (09:15)
[2022-05-18] MEDS ORDERED: Dexmedetomidine 200 MCG/2 ML VIAL ONE (09:15)
[2022-05-18] MEDS ORDERED: HYDROmorphone 2 MG/ML VIAL ONE (09:15)
[2022-05-18] MEDS ORDERED: Ketorolac Tromethamine 30 MG/ML VIAL ONE (09:37)
[2022-05-18] MEDS ORDERED: Ondansetron PF 4 MG/2 ML Vial ONE (09:37)
[2022-05-18] MEDS ORDERED: Lidocaine 1% PF 5 ML VIAL ONE (09:37)
[2022-05-18] MEDS ORDERED: Rocuronium Bromide 10 MG/ML (10ML VIAL) ONE (09:37)
[2022-05-18] MEDS ORDERED: Neostigmine Methylsulfate 3 MG/3 ML SYRINGE ONE (09:37)
[2022-05-18] MEDS ORDERED: PROPOFOL 200 MG/20 ML VIAL ONE (09:37)
[2022-05-18] MEDS ORDERED: Glycopyrrolate 0.2 MG/ML 5 ML SYRINGE ONE (09:37)
[2022-05-18] MEDS ORDERED: CEFAZOLIN 2 GM VIAL ONE ×2 (09:38→15:48)
[2022-05-18] MEDS ORDERED: Sodium Chloride 0.9% 100 ML ONE (09:38)
[2022-05-18] MEDS ORDERED: traMADol HCl 50 MG TAB PO PRN (09:53)
[2022-05-18] MEDS ORDERED: Ondansetron PF 4 MG/2 ML Vial IVP PRN (09:53)
[2022-05-18] MEDS ORDERED: diphenhydrAMINE 25 MG CAP PO PRN (09:53)
[2022-05-18] MEDS ORDERED: HYDROcodone/Acetaminophen 7.5/325 mg Tablet PO PRN (09:53)
[2022-05-18] MEDS ORDERED: Morphine 2 MG/ML VIAL SLOW IVP PRN (09:53)
[2022-05-18] MEDS ORDERED: Acetaminophen 325 MG TAB PO PRN (09:53)
[2022-05-18] MEDS ORDERED: Chloraseptic Spray 180 ml Bottle PO PRN (09:55)
[2022-05-18] MEDS ORDERED: Cepastat Lozenges 1 LOZ PO PRN (09:56)
[2022-05-18] MEDS ORDERED: Albuterol 200 PUFF (6.7GM INHALER) INH PRN (09:56)
[2022-05-18] MEDS ORDERED: hydrALAZINE 20 MG/ML VIAL SLOW IVP PRN (09:58)
[2022-05-18] MEDS ORDERED: ceFAZolin 2 GM/Dextrose 50 ML 2 GM in Premix Bag 1 BAG IVPB SCH (10:00)
[2022-05-18] MEDS ORDERED: Albuterol Sulfate 2.5 mg/3 ml Neb NEB PRN (10:58)
[2022-05-18] MEDS ORDERED: Fentanyl 100 MCG/2 ML VIAL ONE (12:35)
[2022-05-18] MEDS ORDERED: Promethazine HCl 25 MG/ML VIAL IVPB PRN (12:36)
[2022-05-18] MEDS ORDERED: Morphine Sulfate 2 MG/ML SYRINGE SLOW IVP PRN (12:36)
[2022-05-18] MEDS ORDERED: HYDROmorphone 2 MG/ML VIAL SLOW IVP PRN (12:36)
[2022-05-18] MEDS ORDERED: Promethazine HCl 25 MG/ML VIAL IM PRN (12:36)
[2022-05-18] MEDS ORDERED: PACU-Morphine 4MG/ML VIAL SLOW IVP PRN (12:36)
[2022-05-18] MEDS ORDERED: Ondansetron HCl/PF 4 MG/2 ML Vial IVP PRN (12:36)
[2022-05-18] MEDS: Sodium Chloride 0.9% 1,000 ML IV SCH (14:15)
[2022-05-18] MEDS: Acetaminophen/Codeine 30-300mg Tablet PO PRN (15:51)
[2022-05-18] MEDS: CEFAZOLIN 2 GM in Sodium Chloride 0.9% 100 ML IVPB SCH (15:51)
[2022-05-18] MEDS: tiZANidine HCl 4 MG TAB PO PRN (15:52)
[2022-05-18] MEDS ORDERED: Mometasone 200 MCG/PUFF (1 INHALER) INH SCH (18:30)
[2022-05-18] MEDS: HYDROcodone/Acetaminophen 7.5/325 mg Tablet PO PRN (20:33)
[2022-05-18] MEDS ORDERED: Non-Formulary Item 1 EACH (Budesonide [Pulmicort Flexhaler] 180 MCG Inhaler) INH SCH (21:00)
[2022-05-19] MEDS ORDERED: CEFAZOLIN 1 GM VIAL ONE (03:12)
[2022-05-19] MEDS ORDERED: CEFAZOLIN 2 GM VIAL ONE (03:14)
[2022-05-19] MEDS: Sodium Chloride 0.9% 1,000 ML IV SCH ×2 (03:22→13:45)
[2022-05-19] MEDS: CEFAZOLIN 2 GM in Sodium Chloride 0.9% 100 ML IVPB SCH (03:22)
[2022-05-19] MEDS ORDERED: Topiramate 100 MG TAB PO SCH ×2 (09:00)
[2022-05-19] MEDS ORDERED: CYANOCOBALAMIN 3000 MCG PO SCH (09:00)
[2022-05-19] MEDS ORDERED: Multivit, Therapeutic 1 TAB PO SCH (09:00)
[2022-05-19] MEDS ORDERED: Pantoprazole 40 MG GRANULES PACKET PO SCH (09:00)
[2022-05-19] MEDS ORDERED: Non-Formulary Item 1 EACH (Multivitamin [Multi-Vitamin Daily] 1 TABLET Tablet) PO SCH (09:00)
[2022-05-19] MEDS ORDERED: [UNRECOGNIZED DRUG - OTHER] PO SCH (09:00)
[2022-05-19] MEDS ORDERED: Non-Formulary Item 1 EACH (Ascorbic Acid [Vitamin C] 500 MG Capsule) PO SCH (09:00)
[2022-05-19] MEDS ORDERED: Ascorbic Acid 500 mg Chewable Tablet PO SCH (09:00)
[2022-05-19] MEDS ORDERED: Cyanocobalamin (Vitamin B-12) 1,000 MCG TAB PO SCH (09:00)
[2022-05-19] MEDS: HYDROcodone/Acetaminophen 7.5/325 mg Tablet PO PRN (09:15)
[2022-05-19 12:10] VITALS: BP 99/63; TEMP 97.9
[2022-05-19] MEDS: Acetaminophen/Codeine 30-300mg Tablet PO PRN (13:44)
[2022-05-19] MEDS: tiZANidine HCl 4 MG TAB PO PRN (13:45)
== END 2022-05-19 15:55 | disposition home or self-care (01) ==
LOC: SDC 07:21 → SJJU 13:41
PROVIDERS: ADMIT Surgery; ATTEND Surgery
PROC: 01NB0ZZ Release Lumbar Nerve, Open Approach (ICD-10-PCS; principal; 2022-05-18)
PROC: 0SB20ZZ Excision of Lumbar Vertebral Disc, Open Approach (ICD-10-PCS; 2022-05-18)
DX: M48.062 Spinal stenosis, lumbar region with neurogenic claudication (principal); M51.16 Intervertebral disc disorders with radiculopathy, lumbar region; J45.909 Unspecified asthma, uncomplicated; E66.01 Morbid (severe) obesity due to excess calories; Z68.35 Body mass index [BMI] 35.0-35.9, adult; Z79.899 Other long term (current) drug therapy; Z96.82 Presence of neurostimulator; Z98.84 Bariatric surgery status
CPT/HCPCS: 76000; 93005; 93010; C1776; J0690; J1170; J1885; J2250; J2270; J2405; J2704; J3010; J3370; J3490; J7050; J7620; S0028

== ENCOUNTER 2022-11-14 09:31 | Outpatient (CLI) | payer BC ==
[2022-11-14 11:02] LABS: Hemoglobin 14.6 g/dL (12.0-15.5); Mean Corpuscular HGB CONC 35.1 g/dL (32.0-36.0); Mean Corpuscular Hemoglobin 30.4 pg (27.0-33.0); Mean Corpuscular Volume 86.7 fl (81.6-98.3); Mean Platelet Volume 9.4 fl (7.4-10.4); Platelet Count 322 10x3/uL (150-450); RBC Distribution Width 12.2 % (11.5-14.5)
[2022-11-14 11:08] LABS: Anion Gap 12 mmol/L (10-20); BUN (Urea Nitrogen) 13 mg/dL (9.8-20.1); Calc. Creatinine Clearance 0 mL/min (70-130); Calcium 9.9 mg/dL (7.8-10.44); Carbon Dioxide 18 mmol/L (22-29); Chloride 111 mmol/L (98-107); Estimated GFR 107; Glucose 100 mg/dL (70-105); Potassium 3.9 mmol/L (3.5-5.1); Sodium 137 mmol/L (136-145)
[2022-11-14 11:24] LABS: INR-International Normal Ratio 0.9; PTT 26.8 sec (22.0-33.0); Prothrombin Time 9.9 sec (9.5-12.1)
== END 2022-11-14 09:32 | disposition home or self-care (01) ==
LOC: LABBT 09:31
PROVIDERS: ATTEND Surgery
DX: Z01.818 Encounter for other preprocedural examination (principal); M54.16 Radiculopathy, lumbar region; M54.30 Sciatica, unspecified side
CPT/HCPCS: 80048; 85027; 85610; 85730; 93005; 93010

== ENCOUNTER 2022-11-17 07:53 | Observation (INO) | payer BC ==
[2022-11-15 12:55] VITALS: BMI 31.4
[2022-11-17] MEDS ORDERED: Sodium Chloride 0.9% 0 ML ONE (08:23)
[2022-11-17] MEDS ORDERED: CEFAZOLIN 2 GM VIAL ONE ×2 (08:23→10:26)
[2022-11-17] MEDS ORDERED: Lidocaine 1% MPF 2 ML VIAL ONE (08:23)
[2022-11-17 10:21] LABS: SARS-CoV-2 NAA Rapid Test Not Detected (NotDetected)
[2022-11-17] MEDS ORDERED: Sodium Chloride 0.9% 100 ML ONE (10:26)
[2022-11-17] MEDS ORDERED: SUGAMMADEX SODIUM 200 MG/2 ML VIAL ONE (10:30)
[2022-11-17] MEDS ORDERED: fentaNYL PF 100 MCG/2 ML SYRINGE ONE ×2 (10:30→12:18)
[2022-11-17] MEDS ORDERED: Famotidine/PF 20 mg/2ml Vial ONE (10:30)
[2022-11-17] MEDS ORDERED: PROPOFOL 200 MG/20 ML VIAL ONE (10:34)
[2022-11-17] MEDS ORDERED: PHENYLEPHRINE-NS 100 MCG/ML 10 ML SYRINGE ONE (10:34)
[2022-11-17] MEDS ORDERED: Glycopyrrolate 0.2 MG/ML 5 ML SYRINGE ONE (10:34)
[2022-11-17] MEDS ORDERED: Dexamethasone 20 MG/5 ML VIAL ONE (10:34)
[2022-11-17] MEDS ORDERED: Lidocaine 1% PF 5 ML VIAL ONE (10:34)
[2022-11-17] MEDS ORDERED: Metoclopramide HCl 10 MG/2 ML VIAL ONE (10:34)
[2022-11-17] MEDS ORDERED: NEOSTIGMINE 3 MG/3 ML SYR 3 MG/3 ML SYRINGE ONE (10:34)
[2022-11-17] MEDS ORDERED: Ketorolac Tromethamine 30 MG/ML VIAL ONE (10:34)
[2022-11-17] MEDS ORDERED: ePHEDrine 50 MG/ML VIAL ONE (10:34)
[2022-11-17] MEDS ORDERED: Ondansetron PF 4 MG/2 ML Vial ONE (10:34)
[2022-11-17] MEDS ORDERED: Rocuronium Bromide 10 MG/ML (10ML VIAL) ONE (10:34)
[2022-11-17] MEDS ORDERED: Thrombin 5000 UNITS/5 ML VIAL ONE (10:53)
[2022-11-17] MEDS ORDERED: Vancomycin 1 GM VIAL ONE (10:53)
[2022-11-17] MEDS ORDERED: Ondansetron HCl/PF 4 MG/2 ML Vial IVP PRN (12:47)
[2022-11-17] MEDS ORDERED: Promethazine HCl 25 MG/ML VIAL IM PRN (12:47)
[2022-11-17] MEDS ORDERED: HYDROmorphone 0.5 MG/0.5 ML SYRINGE ONE (12:51)
[2022-11-17] MEDS ORDERED: Fentanyl 250 MCG/5 ML VIAL ONE (13:09)
[2022-11-17] MEDS ORDERED: Meperidine HCl/PF 25 MG/ML VIAL ONE (13:15)
[2022-11-17] MEDS ORDERED: Morphine 2 MG/ML VIAL SLOW IVP PRN (14:30)
[2022-11-17] MEDS ORDERED: Acetaminophen 325 MG TAB PO PRN (14:30)
[2022-11-17] MEDS ORDERED: Ondansetron PF 4 MG/2 ML Vial IVP PRN (14:30)
[2022-11-17] MEDS ORDERED: Ketorolac Tromethamine 30 MG/ML VIAL IVP PRN (14:30)
[2022-11-17] MEDS ORDERED: traMADol HCl 50 MG TAB PO PRN (14:30)
[2022-11-17] MEDS ORDERED: Acetaminophen/Codeine 30-300mg Tablet PO PRN ×2 (14:30→16:08)
[2022-11-17] MEDS ORDERED: diphenhydrAMINE 25 MG CAP PO PRN (14:30)
[2022-11-17] MEDS ORDERED: HYDROcodone/Acetaminophen 7.5/325 mg Tablet PO PRN (14:30)
[2022-11-17] MEDS ORDERED: tiZANidine HCl 4 MG TAB PO PRN (14:33)
[2022-11-17] MEDS ORDERED: hydrALAZINE 20 MG/ML VIAL SLOW IVP PRN (14:33)
[2022-11-17] MEDS ORDERED: HYDROcodone/Acetaminophen 10/325 mg Tablet PO PRN (14:34)
[2022-11-17] MEDS: CEFAZOLIN 2 GM in Sodium Chloride 0.9% 100 ML IVPB SCH (17:27)
[2022-11-17] MEDS: Sodium Chloride 0.9% 1,000 ML IV SCH (17:28)
[2022-11-18] MEDS: CEFAZOLIN 2 GM in Sodium Chloride 0.9% 100 ML IVPB SCH (02:15)
[2022-11-18] MEDS: Sodium Chloride 0.9% 1,000 ML IV SCH (03:57)
[2022-11-18] MEDS: HYDROcodone/Acetaminophen 5/325 mg Tablet PO PRN ×2 (04:58→11:16)
[2022-11-18] MEDS ORDERED: Ascorbic Acid 500 mg Chewable Tablet PO SCH (09:00)
[2022-11-18] MEDS ORDERED: Cyanocobalamin (Vitamin B-12) 1,000 MCG TAB PO SCH (09:00)
[2022-11-18] MEDS ORDERED: Topiramate 100 MG TAB PO SCH (09:00)
[2022-11-18] MEDS ORDERED: Multivitamin W/ Minerals 1 TAB PO SCH (09:00)
[2022-11-18 13:35] VITALS: BP 105/66; TEMP 97.6
[2022-11-20] MEDS ORDERED: FLU VACC QS2022-23(6MOS UP)/PF 60 MCG/0.5 ML SYRINGE IM ONE (09:00)
== END 2022-11-18 13:00 | disposition home or self-care (01) ==
LOC: SDC 07:53 → SURG B 15:37
PROVIDERS: ADMIT Surgery; ATTEND Surgery
PROC: 0JPT0MZ Removal of Stimulator Generator from Trunk Subcutaneous Tissue and Fascia, Open Approach (ICD-10-PCS; principal; 2022-11-17)
PROC: 00PU3MZ Removal of Neurostimulator Lead from Spinal Canal, Percutaneous Approach (ICD-10-PCS; 2022-11-17)
PROC: 01NB0ZZ Release Lumbar Nerve, Open Approach (ICD-10-PCS; 2022-11-17)
DX: M51.16 Intervertebral disc disorders with radiculopathy, lumbar region (principal); Z79.899 Other long term (current) drug therapy; Z96.82 Presence of neurostimulator; Z20.822 Contact with and (suspected) exposure to COVID-19
CPT/HCPCS: 96374; 96375; 96376; G0378; J1100; J1170; J1885; J2175; J2405; J2704; J2765; J3010; J3370; J3490; S0028; U0002